=== PATIENT | female | born 1955 | race Caucasian/White ===

== ENCOUNTER 2025-10-04 10:44 | Outpatient (AMB) | payer OTHER, SELFPAY ==
[2025-10-04 11:15] VITALS: BMI 26.6
--- NOTE | 2025-10-04 11:15 | A.SPINEOV_ITS ---
Vital Signs 10/04/25 11:15 Height 5 ft 6 in Weight 165 lb BMI 26.6 Intake Visit Reasons: cervical stenosis Intake Note: Ms. Campbell is here today c/o neck,thoracic and low back pain with intermittent tingling of the arms and legs. MRI done at [facility]. [employer] Al[employer] Installer Required: No Allergies No Known Allergies Allergy (Verified 10/04/25 11:16) Physical Exam Vital Signs: BMI result Body Mass Index 26.6 Assessment & Plan Assessment & Plan (1) Scoliosis (and kyphoscoliosis), idiopathic: Code(s): M41.20 - Other idiopathic scoliosis, site unspecified Category: Medical (2) Cervical disc disorder: Code(s): M50.90 - Cervical disc disorder, unspecified, unspecified cervical region Category: Medical Plan Dear Dr Fisher, Thank you for referring Mrs Campbell to our office today. This is a 69-year-old female history of fibromyalgia, osteoporosis, polyneuropathy presents for evaluation of 2 separate issues. The 1st is a chronic neck pain which is in the posterior midline part of her neck radiates down to her shoulders. Occasionally what go down into her left deltoid. She has an MRI showing degenerative disc disease in the cervical spine and stenosis. Second issue is midline back pain and bilateral lower extremity pain and fatigue in her legs with walking that gets better when she sits. She has had physical therapy on her back, but no dedicated treatment for neck at this point. She takes oxycodone and gabapentin to try to deal with the discomfort. No cortisone injections, because of her osteoporosis. Denies any tingling numbness of the hands, weakness motor strength loss, dexterity loss or other myelopathic symptoms. She does have burning in her fingertips and the tips of her toes which has been diagnosed as a polyneuropathy by Dr. Mario in [place]. PMH: Neurofibromatosis 1, osteoporosis, uterine cancer which she is treating with hormonal therapy, anxiety, depression, ADHD, polyneuropathy. No previous surgeries. No cardiovascular disease, strokes, pulmonary liver kidney or coagu lopathy issues. No history of diabetes. Social hx: She does not smoke, rarely uses marijuana, no alcohol Medications: Gabapentin, duloxetine, alendronate, megestrol, lorazepam, olanzapine, Ritalin and oxycodone Allergies: None Physical exam: Awake alert oriented no acute distress, strength in bilateral upper and lower extremities is full, reflexes diffusely hyperreflexic, positive Suarez's sign, positive Babinski upgoing toe. Clonus in both ankles. Gait is slow but normal. Imaging review: Cervical MRI and lumbar MRI done at [facility] were reviewed by me and Dr. Johnson here in the office today. Cervical MRI shows degenerative disc disease at C4-5 with moderate stenosis, degenerative disc disease at C5-6 with left C6 foraminal narrowing, C6-7 degenerative disc disease with moderate stenosis. No cord signal change seen. Lumbar MRI shows normal alignment of the spine but there is overgrowth of the facets and ligamentum hypertrophy at L4-5 causing moderate to severe stenosis Impression: 69-year-old female presents to the office today for evaluation of 2 separate problems. The 1st issue is neck pain which can be explained to some degree with her degenerative disc disease at C4-5, C5-6 and C6-7. However, in light of the fact that she has fibromyalgia and osteoporosis, it would make her high risk for complications including hardware failure and ongoing neck pain if we were to do anterior cervical fusion to address these. There is the factor of her cervical stenosis at C4-5 and C6-7, in the setting of hyperreflexia often this will be an indication for surgery, but she has no subjective symptoms of stenosis including weakness of the hands, arm numbness etc.. She has no loss of fine motor movements. Therefore, we will treat this clinically with routine follow-up every 6 months. If she starts to develop symptoms she knows to call us and we can consider an operation at that point. With regard to the presentation of low back pain and bilateral lower extremity pain. She does have what looks like normal alignment of the spine and good disc quality but there is severe stenosis at L4-5 related to posterior ligamentous hypertrophy. We will send the patient for standing scoliosis series x-rays to evaluate her a little more closely, as she has been told in the past that she does have a history of a curved spine and on clinical observation she appears to have scoliosis when standing upright. If there is no signs of significant scoliotic curvature with standing, Dr. Johnson will offer her an L4-5 decompression. Thank you for allowing us to care for your patient. The total time spent with this visit with this patient was 65 minutes reviewing history, physical exam, lumbar and cervical imaging review, and implementation of treatment plan or further diagnostic testing Pete Johnson MD,PhD [facility] Orders: Orders XR scoliosis survey Today M41.20 - Other idiopathic scoliosis, site unspecified XR lumbar spine 4V min Today M41.20 - Other idiopathic scoliosis, site unspecified Coding Level of Care Code New Pt Level 5 (13561) Diagnoses Scoliosis (and kyphoscoliosis), idiopathic M41.20 Cervical disc disorder M50.90
== END 2025-10-04 13:06 | disposition home or self-care (01) ==
LOC: HO.HNS 10:45
PROVIDERS: PCP Family Medicine; Referring Provider Family Medicine; Visit Provider Physician Assistant
DX: M41.20 Other idiopathic scoliosis, site unspecified (principal); M50.90 Cervical disc disorder, unspecified, unspecified cervical region
CPT/HCPCS: 99205

== ENCOUNTER 2025-10-04 10:44 | Outpatient (REF) | payer OTHER, SELFPAY ==
--- OUTSIDE RECORDS SUMMARY | 2025-10-02 12:00 | XMS_ITS | Encounter Summary ---
Author Organization [facility] Address [address] [place] [address] Care Team Providers Care Research/Program Director Name Role Phone Lexi Fisher MD Primary Care Provider [phone] Diane Coker Unavailable Unavailable Reason for Visit * Reason Comments Anxiety Encounter Details Date Type Department Care Team (Late st Contact Info) Description 10/02/2025 12:00 PM EST Home Visit [facility] [address] [place] [address] Kaya Ferguson RN Anxiety about health Social History Tobacco Use Types Packs/Day Years Used Date Smoking Tobacco: Former Cigarettes Depression Answer Date Recorded Patient Health Questionnaire-9 Score 16 01/20/2023 Depression Answer Date Recorded Patient Health Questionnaire-2 Score 4 01/20/2023 Comments Unknown Sex and Gender Information Value Date Recorded Sex Assigned at Female 11/10/2022 1:55 PM EST Legal Sex Female 8:40 PM EDT Gender Identity Female 11/10/2022 1:55 PM EST Sexual Orientation Choose not to disclose 2022 8:57 AM EST documented as of this encounter Plan of Treatment Upcoming Encounters Date Type Department Care Team (Late st Contact Info) Description 10/07/2025 2:00 PM EST Office Visit [facility] [address] [place] [address] Lexi Fisher MD [address] [place] [address] documented as of this encounter Visit Diagnoses Diagnosis Anxiety about health documented in this encounter Additional Health Concerns Assessment Noted Time PHQ-9 Depression Total Score: 16 023 2:48 PM EDT documented as of this encounter Care Teams Research/Program Director Relationship Specialty Start Date End Date Lexi Fisher MD [address] [facility] [address] PCP - General Family Medicine 10/13/22 Diane Coker Health Navigator [facility] 03/09/23 documented as of this encounter
--- NOTE | ~2025-10-04 | XR_ITS ---
EXAM: CR Xr Scoliosis Survey TECHNIQUE: AP and lateral views of the cervical, thoracic, and lumbar spine. There was stitching of the AP views. INDICATION: Scoliosis PRIOR: None FINDINGS: Sagittal balance: Positive: The geometric center of the C7 vertebral body projects 2.9 anterior to the posterior margin of the superior endplate of S1. Coronal balance: Neutral. The geometric center of C7 projected 0.7 cm right of the center of S1. Curvature: Cervical: 6 degrees convex left. Thoracic: 11 degrees convex right with apex at T8. Lumbar: 7 degrees convex left. [place] Risser Stage: 5: Completely ossified iliac crest apophysis and closed physis. XR/XR scoliosis survey IMPRESSION: Mild S shaped scoliosis and positive sagittal balance Electronically signed by: Victor M Bell MD 10/04/2025 01:04 PM CAYDEN DUVALL
--- NOTE | ~2025-10-04 | XR_ITS ---
Examination: CR Xr Lumbar Spine 4v Min Technique: AP, lateral spot, and lateral: Flexion, neutral, and extension view x-rays of the lumbar spine. Prior: None INDICATION: M41.20 - Other idiopathic scoliosis, site unspecified FINDINGS: Mild degenerative changes are present left greater than right SI joints. There is a normal bowel gas pattern. There are 5 non-rib bearing lumbar segments. There is mild convex left curvature of the lumbar spine. T12-L1: Unremarkable L1-L2: There is minimal disc space narrowing and ossification of the disc annulus. L2-L3: There is subtle retrolisthesis and mild disc space narrowing with endplate osteophytes. L3-L4: Unremarkable L4-L5: There is 7 mm anterolisthesis on extension and 4 mm anterolisthesis in neutral position. There is mild disc space narrowing. There is mild facet sclerosis. L5-S1: There is grade 1 anterolisthesis without significant instability during flexion and extension. Disc spaces minimally narrowed. There is mild facet sclerosis. XR/XR lumbar spine 4V min IMPRESSION: L4-5 demonstrates mild grade 1 anterolisthesis with possible instability during flexion and extension. Electronically signed by: Victor M Bell MD 10/04/2025 01:10 PM EST
--- OUTSIDE RECORDS SUMMARY | 2025-10-04 17:55 | XMS_ITS | Clinical Summary ---
Author Organization [facility] Address [address] [place] [address] Phone Care Team Providers Care Loop Puller Name Role Phone Checo Mario MD Unavailable Marc Mario MD Unavailable [phone] Francois Salazar MD Unavailable [email or web address] Lexi Fisher MD Primary Care Provider Allergies Active Allergy Reactions Criticality Noted Date Comments Mold Extracts 10/20/2022 Medications methylphenidate HCl (RITALIN) 10 MG tablet Take 30-40 mg by mouth daily. 20mg sometimes 30mg Active cholecalciferol (VITAMIN D3) 1,000 unit tablet 1 tablet, alt with 2 tabs Orally Once a day Active polyethylene glycol (MIRALAX) 17 gram packet 2 (two) times a day. Active diclofenac sodium (VOLTAREN) 1 % Gel APPLY A SMALL AMOUNT TO KNEES 3 TIMES A DAY NEEDED 1 9 Active acetaminophen (TYLENOL) 500 MG tablet Take 500 mg by mouth every 6 (six) hours as needed for pain (specific location in comments). Active VENTOLIN HFA 90 mcg/actuation inhaler INHALE 1 PUFF BY MOUTH EVERY 4 HOURS NEEDED 2 Active ANTACID EXTRA-STRENGTH 300 mg (750 mg) Chew CHEW 1 TABLET 3 TIMES A DAY NEEDED FOR MODERATE PAIN 2 Active fluticasone propionate (FLONASE) 50 mcg/actuation nasal spray SPRAY 2 SPRAYS INTO EACH NOSTRIL EVERY DAY 2 Active ALAWAY 0.025 % (0.035 %) ophthalmic solution INSTILL 1 DROP INTO BOTH EYES TWICE A DAY. MAX OF 2 DOSES PER DAY SPACED 8-12 HOURS APART 2 Active megestroL (MEGACE) 40 MG tablet 1 tablet every morning. Active OLANZapine (ZYPREXA) 10 MG tablet 1 tablet every morning. Active oxyCODONE-aceta minophen (PERCOCET) 10-325 mg per tablet Take 1 tablet by mouth every 6 (six) hours as needed for pain (specific location in comments). Partial fill ok Active gabapentin (NEURONTIN) 100 MG capsule Take 2 capsules (200 mg total) by mouth 3 (three) times a day for 14 days. 84 capsule 4 Active LORazepam (ATIVAN) 0.5 MG tablet Take 1 tablet (0.5 mg total) by mouth 2 (two) times a day as needed for anxiety. 4 Active Active Problems Problem Noted Date Diagnosed Date Ataxia 04/11/2024 Assessment & Plan (04/13/2024 4:35 PM EDT): Unclear cause, though likely an element of chronicity. Multiple prior encounters have referenced difficulty with gait and falls, including her medical admission at [facility] in 2019. Certainly her chronic diplopia is contributing to her falls. Unclear how much worse her gait is today versus her baseline. Appreciate [facility] neurology input. Agree that with altered renal function she is at risk for gait and mental status changes from her high dose gabapentin. - gabapentin 1200mg held for 2 days, some improvement in functionality, resumed med at 200 mg TID - at 1200 and 2000. Monitor for adverse response - decrease dose of home oxycodone and lorazepam for now - MRI of the brain completed and resulted w/ no acute findings - PT/OT evaluation- still requiring moderate help w/ sitting up, contact w/ wheeled walker- likely home w/ VNA Abnormal biopsy result 04/11/2024 ADHD 04/11/2024 Back pain 04/11/2024 Cervical spondylosis 04/11/2024 Chronic pelvic pain in female 04/11/2024 Fibromyalgia 04/11/2024 Headache 04/11/2024 Constipation 04/11/2024 Assessment & Plan (04/13/2024 4:29 PM EDT): Pt. States nausea today 04/13 States no BM since - Miralax bid ordered -Senna changed from 1 tab prn to 2 tabs prn -Dulcolax pr x1 ordered - zofran 4mg for nausea Q 8hr. Prn available Bipolar disorder 04/11/2024 Overview (04/11/2024): has long standing therapist, Randi Rich Assessment & Plan (04/11/2024 9:04 PM EDT): Continue home olanzapine. Will reduce dose of home lorazepam while workup is ongoing. Depression 04/11/2024 Fracture of hand 04/11/2024 Generalized anxiety disorder 04/11/2024 GERD (gastroesophageal reflux disease) Hiatal hernia 04/11/2024 Malignant neoplasm of endometrium 04/11/2024 Overview (04/11/2024): followed by [facility] Extension Professor/onc On alf drug therapy 04/11/2024 Osteoarthritis 04/11/2024 Peripheral neuropathy 04/11/2024 Somatization disorder 04/11/2024 Disorientation 04/11/2024 Assessment & Plan (04/13/2024 4:32 PM EDT): Appears to have some mild disorientation which has been waxing and waning while in the ED. She is oriented x 3 on my exam, though at times does seem confused about her surroundings and circumstances. No focal neurologic deficits beyond ataxia. As above, will hold her gabapentin and give reduced doses of her home lorazepam and oxycodone. - Slight disorientation s/p 2mg Ativan administered for MRI test. Improved as afternoon wore on. If improved tomorrow, maybe dc home. 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 Really needs to get out a bit more. She made a new friend and is going to coffee hour. Talked about going to the [employer] and using the warm pool or doing chair yoga. She said she would look into this. Reactive airway disease 11/11/2022 Adult failure to thrive 08/30/2019 Assessment & Plan (08/31/2019 6:10 PM EST): Patient has a significant component of increased depression and anxiety which is contributing to her failure to thrive. She does absolutely have associated weakness and pain which is intermittent and I suspect is related to some neuropathic pain. We have involved physical therapy who reports that the patient is a further perspective to return home with outpatient services. Also involved palliative care who has given great insight and will continue to support the patient as an outpatient on discharge. I recommended to the patient that she continue to follow-up with her outpatient psychologist for continued support and adjustment of her medications on discharge. 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 Given her current symptoms, will obtain a brain MRI, as above. - MRI of brain done; no acute findings; Findings: Brain Parenchyma: No evidence of acute infarct, mass effect or hemorrhage. There are mild scattered foci of T2/FLAIR hyperintensity in the periventricular and subcortical white matter, likely a manifestation of mild chronic small vessel disease. Mild diffuse cerebral and cerebellar parenchymal volume loss. Ventricular System and Extra-Axial Spaces: The ventricles and cortical sulci are prominent, compensatory due to underlying volume loss. No evidence of midline shift or hydrocephalus. Extracranial Structures: Orbits appear normal. Paranasal sinuses and mastoid air cells are clear. Normal arterial flow voids in the skull base. Right parietal scalp and right preauricular sebaceous cysts. Assessment & Plan (08/31/2019 6:11 PM EST): She is followed by Dr. Salazar at [facility]. The emergency department discussed the case with teleneurology and they asked that she be transferred to a facility with neurology on staff, but the patient would rather stay here. The MRI of her brain showed no significant change in findings from January 2018 when she had her last MRI brain. There was no brainstem glioma resulting in no increased intracranial pressure. The patient has symptoms of peripheral neuropathy so an MRI of her total spine is still pending. The read on this is not back yet so given the late hour and the lack of radiology input at this time, will defer patient's discharge until tomorrow morning we have this information available to have sure that there is no acute surgical intervention needed. I suspect that with a paucity of symptoms this afternoon with my exam that the patient unlikely to have significant nerve root compression which would require surgical decompression on a urgent basis. Neuropathic pain 02/18/2019 Dupuytren's contracture of left hand 04/21/2018 Weakness Encounters Date Type Department Care Team Description 09/25/2025 5:51 PM EST - 09/25/2025 11:59 PM EST Hospital Encounter [address] [address] Lexi Fisher MD Discharge Disposition: Home or Self Care 09/06/2025 Procedure Pass [address] [address] 09/06/2025 Transcribe Orders Virtual Department [address] [place] [address] Lexi Fisher MD Bilateral leg weakness (Primary Dx) from Last 3 Months Family History Medical History Relation Comments No Known Problems Brother Bladder Cancer Father Lung cancer Mother No Known Problems Sister Neurofibromatosis Neg Hx Relation Status Comments Brother Alive Father Mother Sister Alive Social History Tobacco Use Types Packs/Day Years Used Date Smoking Tobacco: Former Cigarettes Q uit: 02/23/2000 Smokeless Tobacco: Never Tobacco Cessation:Counseling Given: Not Answered Alcohol Use Standard Drinks/Week Comments Not Currently 0 (1 standard drink = 0.6 oz pur e alcohol) Sober since November 2016 Education Answer Date Recorded Are you interested in more education? Not on kendrick e 03/06/2023 Are you concerned about learning? Not on file 03/06/2023 No 03/06/2023 No 03/06/2023 Food Answer Date Recorded Within the past 6 months we worried whether our food would run out before we got money to buy more. Never True 04/11/2024 Within the past 6 months the food we bought just didn't last and we didn't have enough money to get more. Never True Residential Stability Answer Date Recor ded What is your housing situation today? I have shanique sing 04/11/2024 How many times have you move d in the past 12 months? Zero (I did not move) 04/11/2024 Paying for Meds Answer Date Recorded Do you have trouble paying for medicines? No 04/11/2024 Paying Utility Bills Answer Date Record ed Do you have trouble paying your heating or elect ricity bill? No 04/11/2024 Transportation Answer Date Recorded Has the lack of transportati on kept you from medical appointments or from getting medications? No 04/11/2024 Digital Access Answer Date Recorded No 04/11/2024 Yes 04/11/2024 Do you have reliable internet access at home? Un able to assess 04/11/2024 Do you have a device (e.g., phone, tablet, computer) with a working camera? Yes 04/11/2024 Intimate Partner Violence Answer Date R ecorded Are you denied basic needs s uch as food, clothing, or medical care? No 04/11/2024 In the past 12 months have y ou been in a relationship with a person who hurts, threatens, or tries to control you? No 04/11/2024 Are you denied basic needs s uch as food, clothing, or medical care? No 04/11/2024 In the past 12 months have y ou been in a relationship with a person who hurts, threatens, or tries to control you? 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 Not on file Not on file Not on file Last Filed Vital Signs Vital Sign Reading Time Taken Comments Blood Pressure 138/85 04/14/2024 8:50 AM EDT Pulse 82 04/14/2024 8:50 AM EDT Temperature 36.8 C (98.2 F) 04/14/2024 8:50 AM EDT Respiratory Rate 16 04/14/2024 8:50 AM EDT Oxygen Saturation 97% 04/14/2024 8:50 AM EDT Inhaled Oxygen Concentration - - Weight 74.8 kg (165 lb) 09/17/2025 2:42 PM EST Height 167.6 cm (5' 6 ) 09/17/2025 2:42 PM EST Body Mass Index 26.63 09/17/2025 2:42 PM EST Plan of Treatment Health Maintenance Due Date Last Done Comments DEPRESSION SCREENING 1969 SMOKING Hx and SMOKELESS TOBACCO SCREENING 1970 HEPATITIS C SCREENING 1975 PNEUMOCOCCAL VACCINES (50+ years) (1 of 2 - PCV) 1976 MAMMOGRAM 1997 COLOGUARD 2002 FIT TEST 2002 FOBT 2002 SIGMOIDOSCOPY 2002 VIRTUAL COLONOSCOPY 2002 OSTEOPOROSIS SCREENING INITIAL (ONE-TIME) 2022 LIPID PANEL 08/28/2023 08/28/2018 INFLUENZA VACCINE (#1) 2025 2, 06/20/2021, 06/23/2020, Additional history exists Adult Td,Tdap Booster 06/14/2025 06/14/2015 COVID-19 VACCINE ( season) 2025 10/07/2022, 05/11/2022, 01/28/2021 SCREENING FOR DIABETES 04/14/2027 04/14/2024 COLONOSCOPY 02/25/2028 02/24/2018 COLORECTAL CANCER SCREENING 02/25/2028 RSV VACCINE (1 - 1-dose 75+ series) 2032 ZOSTER VACCINES Completed 01/12/2023, 06/20/2021 HEPATITIS A VACCINES Aged Out No long er eligible based on patient's age to complete this topic HIB VACCINES Aged Out No longer eligi ble based on patient's age to complete this topic MENINGOCOCCAL VACCINES (ACWY) Aged Out No longer eligible based on patient's age to complete this topic MENINGOCOCCAL VACCINES (B) Aged Out N o longer eligible based on patient's age to complete this topic Medical Devices Not on file Procedures Procedure Name Priority Date/Time Associated Diagnosis Comments MRI LUMBAR SPINE (NEURO) WITHOUT CONTRAST Routine 09/25/2025 7:00 PM EST Bilateral leg weakness LIPID PANEL Routine 08/28/2018 8:12 AM EST Routine medical exam ENDOSCOPY, COLON 02/24/2018 2:39 PM EDT from Last 3 Months or Most Recently Relevant to Health Maintenance Results * MRI LUMBAR SPINE (NEURO) WITHOUT CONTRAST (09/25/2025 7:00 PM EST) Anatomical Region Laterality Modality L-spine Magnetic Resonan ce 09/27/2025 2:31 PM EST Impressions 09/27/2025 2:38 PM EST Moderate multilevel lumbar spondylosis, notable for grade 1 anterolisthesis at L5-S1. There is moderate canal narrowing at L4-5, without specific evidence for nerve root impingement. Narrative 09/27/2025 2:38 PM EST MRI LUMBAR SPINE (NEURO) WITHOUT CONTRAST Referring clinician's provided indication for this examination in Epic: Outside Radiology Order; BILATERAL LEG WEAKNESS TECHNIQUE: MRI LUMBAR SPINE (NEURO) WITHOUT CONTRAST Multi-sequence, multi-planar MRI of the lumbar spine was performed without intravenous contrast. COMPARISON: MRI CERVICAL/THORACIC/LUMBAR SPINE WITHOUT CONTRAST FINDINGS: LUMBAR SPINE: Alignment and Vertebrae: 0.4 cm anterolisthesis of L5 on S1, without associated pars defects. No acute compression fracture. Marrow: No bone marrow replacing lesion. Discs and Endplates: Normal intervertebral disc heights and signal. Conus: Normal. Soft Tissues: Normal. No prevertebral edema. Other Findings: None. Findings by level: T12-L1: Negative L1-L2: Mild bilateral facet arthropathy, without significant canal or foraminal narrowing. L2-L3: Mild bilateral facet arthropathy, without significant canal or foraminal narrowing. L3-L4: Mild bilateral facet arthropathy. Mild diffuse disc bulge eccentric to the right foraminal region. No significant canal or foraminal narrowing. L4-L5: Moderate bilateral facet arthropathy with ligamentum flavum infolding. There is a small medially oriented right facet synovial cyst. Diffuse disc bulge. Moderate canal narrowing with crowding of the cauda equina nerve roots but without specific evidence for impingement. No high-grade foraminal narrowing. There is a right foraminal annular fissure. L5-S1: Severe bilateral facet arthropathy. Mild anterolisthesis with disc uncovering. Mild bilateral foraminal narrowing. Procedure Note Lisandro Cornell MD - 09/27/2025 MRI LUMBAR SPINE (NEURO) WITHOUT CONTRAST Referring clinician's provided indication for this examination in Epic:Outside Radiology Order; BILATERAL LEG WEAKNESS TECHNIQUE: MRI LUMBAR SPINE (NEURO) WITHOUT CONTRAST Multi-sequence, multi-planar MRI of the lumbar spine was performed withoutintravenous contrast. COMPARISON: MRI CERVICAL/THORACIC/LUMBAR SPINE WITHOUT [id number] FINDINGS: LUMBAR SPINE: Alignment and Vertebrae: 0.4 cm anterolisthesis of L5 on S1, withoutassociated pars defects. No acute compression fracture. Marrow: No bone marrow replacing lesion. Discs and Endplates: Normal intervertebral disc heights and signal. Conus: Normal. Soft Tissues: Normal. No prevertebral edema. Other Findings: None. Findings by level: T12-L1: Negative L1-L2: Mild bilateral facet arthropathy, without significant canal orforaminal narrowing. L2-L3: Mild bilateral facet arthropathy, without significant canal orforaminal narrowing. L3-L4: Mild bilateral facet arthropathy. Mild diffuse disc bulge eccentricto the right foraminal region. No significant canal or foraminalnarrowing. L4-L5: Moderate bilateral facet arthropathy with ligamentum flavuminfolding. There is a small medially oriented right facet synovial cyst.Diffuse disc bulge. Moderate canal narrowing with crowding of the caudaequina nerve roots but without specific evidence for impingement. Nohigh-grade foraminal narrowing. There is a right foraminal annularfissure. L5-S1: Severe bilateral facet arthropathy. Mild anterolisthesis with discuncovering. Mild bilateral foraminal narrowing. IMPRESSION: Moderate multilevel lumbar spondylosis, notable for grade 1anterolisthesis at L5-S1. There is moderate canal narrowing at L4-5,without specific evidence for nerve root impingement. us Lexi Fisher MD IMG MR XSPECIALTY Final Resu lt * (ABNORMAL) Lipid panel (08/28/2018 8:12 AM EST) HDL 81 mg/dL [facility] Comment: Interpretation <40 mg/dL: Low HDL cholesterol (major risk factor for CHD) Greater than or equal to 60 mg/dL: High HDL cholesterol ( negative risk factor for CHD) HDL - cholesterol is affected by a number of factors, e.g. smoking, excerise, hormones, sex and age. CHOLESTEROL 209 0 - 240 mg/dL [facility] TRIGLYCERIDES 77 30 - 160 mg/dL [facility] LDL 113 50 - 129 mg/dL [facility] Comment: LDL levels in terms of risk for coronary heart disease: <100 mg/dL: Optimal 100-129 mg/dL: Near or above optimal 130-159 mg/dL: Borderline high 160-189 mg/dL: High >190 mg/dL: Very High CARDIAC RISK RATIO 2.6(L) 3.3 - 4.4 [facility] Blood 08/28/2018 8:12 AM EST 08/28/2018 8:17 AM EST us Theresa Shah MD LAB BLOOD BKR ORDER JOSIAH Final Result [facility] [address] [place], [place] [id number] * ENDOSCOPY, COLON (02/24/2018 2:39 PM EDT) Narrative Transcriptions Carroll Chamberlain MD - 02/24/2018 2:39 PM EDT Patient Name: Ivy Campbell Attending MD:: CARROLL CHAMBERLAIN MD Procedure Date: 02/24/2018 2:39 PM Date of : 1955 Age: 62 Admit Type: Outpatient Gender: Female Room: [place] [address] Referring MD: THERESA SHAH MD Exam Type: Colonoscopy Indications: Change in bowel habits Medications: Sedation Required Anesthesia Staff Assistance Procedure: Informed consent was obtained from the patient after discussion of the indications, limitations,alternatives, benefits, and risks of the procedure. Risksspecifically discussed include but are not limited to medication reactions, missed lesions, bleeding, perforation, orthe need for emergent surgery. Throughout the procedure, the patient's blood pressure, pulse, end-tidal CO2, and oxygen saturations were monitored continuously. The Olympus adult variable colonoscope [id number] #2 was introduced through the anus and advanced to theterminal ileum. The colonoscopy was performed withoutdifficulty. The patient tolerated the procedure well. The qualityof the bowel preparation was good. Complications: No immediate complications. Estimated blood loss:Minimal. Findings: The perianal and digital rectal examinations werenormal. The terminal ileum appeared normal. Biopsies were taken with a cold forceps for histology. Few small diverticula, no significant diverticular disease. Biopsies were taken with a cold forceps for histology. Internal hemorrhoids were found during retroflexion.The hemorrhoids were mild. Impression: - The examined portion of the ileum was normal.Biopsied. - Internal hemorrhoids. Recommendation: - Discharge patient to home (ambulatory). - Await pathology results. - Return to GI office as previously scheduled. CARROLL CHAMBERLAIN MD 02/24/2018 3:18:13 PM This report has been signed electronically. Number of Addenda: 0 Note Initiated On: 02/24/2018 2:39 PM Procedure Code(s): --- Professional --- 30333, Colonoscopy, flexible; with biopsy, single or multiple --- Technical --- 33432, Colonoscopy, flexible; with biopsy, single or multiple Diagnosis Code(s): --- Professional --- K64.8, Other hemorrhoids R19.4, Change in bowel habit --- Technical --- K64.8, Other hemorrhoids R19.4, Change in bowel habit CPT copyright 2016 [employer]. All rights reserved. The codes documented in this report are preliminary and upon real estate attorney reviewmay be revised to meet current compliance requirements. [address] [place] [id number] Theresa Shah MD GI PROCEDURE ORDERA BLES Edited Result - Final from Last 3 Months or Most Recently Relevant to Health Maintenance Insurance MEDICARE PART A & B Member Subscriber Plan / Payer (Ef fective 2005-Present) Name:Ivy Campbell Member ID:[id number] Relation to Subscriber:Self Name:Ivy Campbell Subscriber ID:[id number] Payer ID:[id number] Group ID:Not on file Type:Medicare Address: [employer] [facility]. [address] [facility] [place] [address] [facility] MEDICARE REPLACEMENT MEDICARE PART A & B [employer] [facility] [employer] MEDICARE REPLACEMENT MEDICARE PART A & B [employer] [facility] [employer] MEDICARE REPLACEMENT MEDICARE PART A & B [facility] MEDICARE REPLACEMENT MEDICARE PART A & B [facility] RE[facility] SARAH HARPER [id number] MEDICARE PART A & B [facility] MEDICARE REPLACEMENT SARAH HARPER [facility] MEDICARE PART A & B Member Subscriber Plan / Payer (Ef fective 2005-Present) Name:Ivy Campbell Member ID:[id number] Relation to Subscriber:Self Name:Ivy Campbell Subscriber ID:[id number] Payer ID:[id number] Group ID:Not on file Type:Medicare Address: [employer] [address] MED[address] REPLACEMENT SARAH HARPER [facility] MEDICARE PART A & B [facility] MEDICARE REPLACEMENT MEDICARE PART A & B Member Subscriber Plan / Payer (Ef fective 2005-Present) Name:Ivy Campbell Member ID:[id number] Relation to Subscriber:Self Name:Ivy Campbell Subscriber ID:[id number] Payer ID:[id number] Group ID:Not on file Type:Medicare Address: [employer] [facility] [address] [place] [address] [facility] Advance Directives For more information, please contact: [phone] (9AM - 5PM [facility], Tuesday-Tuesday) * DNR/DNI (No CPR/No Intubation) (Latest Code Status on File) Date Activated Date Inactivated Comments 04/11/2024 8:59 PM Question Answer Comments Code Status Confirmed With: Patient * DNR/DNI (No CPR/No Intubation) Date Activated Date Inactivated Comments 08/30/2019 2:02 AM 08/31/2019 10:05 PM Question Answer Comments Code Status Confirmed With: Patient Care Teams Loop Puller Relationship Specialty Start Date End Date Lexi Fisher MD [address] [place] [address] PCP - General Family Medicine 04/12/24 Checo Mario MD [address] [place] [address], [address] [place] [address] Neurology 11/29/18 Marc Mario MD [address] [place] [address], [address] [place] [address] Psychiatry 11/29/18 Francois Salazar MD [email or web address] Primary Oncologist Neurology 01/03/19 Randi Rich Psy.D. [address] [place] [address] [address] [place] [address] Psychologist 11/30/18 Additional Source Comments The information contained in this document represents components of the legal health record. It is not the complete legal health record.[facility]
--- OUTSIDE RECORDS SUMMARY | 2025-10-04 17:55 | XMS_ITS | Encounter Summary ---
Author Organization [facility] Address [address] [place] [address] Phone Care Team Providers Care Acoustical Material Worker Name Role Phone Carlitos Castro MD Primary Care Provider [phone] Checo Mario MD Unavailable [phone] Marc Mario MD Unavailable [phone] Francois Salazar MD Unavailable [email or web address] Abigail Jason MD Primary Care Provider [phone] Lexi Fisher MD Primary Care Provider [phone] Encounter Details Date Type Department Care Team (Late st Contact Info) Description 08/30/2019 Procedure Pass [facility], [address] [address] Social History Tobacco Use Types Packs/Day Years Used Date Smoking Tobacco: Former Cigarettes Q uit: 02/23/2000 Smokeless Tobacco: Never Alcohol Use Standard Drinks/Week Comments Not Currently 0 (1 standard drink = 0.6 oz pur e alcohol) Sober since November 2016 Comments No Sex and Gender Information Value Date Recorded Sex Assigned at Female 03/02/2018 12:27 PM EDT Legal Sex Female 5:09 PM EST Gender Identity Female 03/02/2018 12:27 PM EDT Sexual Orientation Straight 03/02/2018 12 :27 PM EDT 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 file Not on file Not on file documented as of this encounter Last Filed Vital Signs Vital Sign Reading Time Taken Comments Blood Pressure - - Pulse - - Temperature - - Respiratory Rate - - Oxygen Saturation - - Inhaled Oxygen Concentration - - Weight 55.3 kg (122 lb) 08/30/2019 8:40 AM EST Height 166.4 cm (5' 5.51 ) 08/30/2019 8:40 AM ES T Body Mass Index 19.99 08/30/2019 8:40 AM EST documented in this encounter Plan of Treatment Not on file documented as of this encounter Visit Diagnoses Not on filedocumented in this encounter Care Teams Acoustical Material Worker Relationship Specialty Start Date End Date Carlitos Castro MD [address] [place] [address] PCP - General Internal Medicine 11/29/18 10/21/22 Abigail Jason MD [address] [place] [address] [email or web address] PCP - General Family Medicine 10/22/2204/11 Lexi Fisher MD [address] [place] [address] [email or web address] PCP - General Family Medicine 04/12/24 Checo Mario MD [address] [place] [address], [address] [place] [address] Neurology 11/29/18 Marc Mario MD [address] [place] [address], [address] [place] [address] Psychiatry 11/29/18 Francois Salazar MD [email or web address] Primary Oncologist Neurology 01/03/19 Randi Rich Psy.D. [address] [place] [address], [facility] [address] [place] [address] Psychologist 11/30/18 documented as of this encounter Additional Source Comments The information contained in this document represents components of the legal health record. It is not the complete legal health record.[facility]
--- OUTSIDE RECORDS SUMMARY | 2025-10-04 17:55 | XMS_ITS | Encounter Summary ---
Author Organization [facility] Address [address] [place] [address] Phone Care Team Providers Care Head Start Coordinator Name Role Phone Carlitos Castro MD Primary Care Provider [phone] Checo Mario MD Unavailable [phone] Marc Mario MD Unavailable [phone] Francois Salazar MD Unavailable SAROJ [email or web address] Abigail Jason MD Primary Care Provider [phone] Lexi Fisher MD Primary Care Provider [phone] Encounter Details Date Type Department Care Team (Late st Contact Info) Description 08/30/2019 Procedure Pass [facility], [address] [address] Social History Tobacco Use Types Packs/Day Years [...] on file 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 Not on file Not on file documented as of this encounter Plan of Treatment Not on file documented as of this encounter Visit Diagnoses Not on filedocumented in this encounter Care Teams Head Start Coordinator Relationship Specialty Start Date End Date Carlitos Castro MD [address] [place] [address] PCP - General Internal Medicine 11/29/18 10/21/22 Abigail Jason MD [address] [place] [address] [email or web address] PCP - General Family Medicine 10/22/2204/11 Lexi Fisher MD [address] [place] [address] [email or web address] PCP - General Family Medicine 04/12/24 Checo Mario MD [address] [place], [place] [address] [place] [address] Neurology 11/29/18 Marc Mario MD [address] [place] [address] Psychiatry 11/29/18 Francois Salazar MD [email or web address] Primary Oncologist Neurology 01/03/19 Randi Rich Psy.D. [address] [place] [address] Psychologist 11/30/18 documented as of this encounter Additional Source Comments The information contained in this document represents components of the legal health record. It is not the complete legal health record.[facility]
--- OUTSIDE RECORDS SUMMARY | 2025-10-04 17:56 | XMS_ITS | Encounter Summary ---
Author Organization [facility] Address [address] [place] [address] Phone Care Team Providers Care Net Development Manager Name Role Phone Carlitos Castro MD Primary Care Provider [phone] Checo Mario MD Unavailable Marc Mario MD Unavailable Francois Salazar MD Unavailable SAROJ [email or web address] Abigail Jason MD Primary Care Provider [phone] Lexi Fisher MD Primary Care Provider Encounter Details Date Type Department Care Team (Latest Contact Info) Description 08/13/2021 Transcribe Orders Virtual Department [address] [place] [address] Bianka Logan MD [address] [phone] Endometrial cancer (Primary Dx) Social History Tobacco Use Types Packs/Day Years [...] as of this encounter Visit Diagnoses Diagnosis Endometrial cancer- Primary Malignant neoplasm of corpus uteri, except isthmus documented in this encounter Care Teams Net Development Manager Relationship Specialty Start Date End Date Carlitos Castro MD [address] [place] [address] PCP - General Internal Medicine 11/29/18 10/21/22 Abigail Jason MD [address] [place] [address] [email or web address] PCP - General Family Medicine 10/22/2204/11 Lexi Fisher MD [address] [place] [address] [email or web address] PCP - General Family Medicine 04/12/24 Checo Mario MD [address] [place] [address], [address] [place] [address] Neurology 11/29/18 Marc Mario MD [address] [place] [address], [facility] [address] [place] [address] Psychiatry 11/29/18 Francois Salazar MD [email or web address] Primary Oncologist Neurology 01/03/19 Randi Rich Psy.D. [address] [place] [address] [address] [place] [address] Psychologist 11/30/18 documented as of this encounter Additional Source Comments The information contained in this document represents components of the legal health record. It is not the complete legal health record.[facility]
--- OUTSIDE RECORDS SUMMARY | 2025-10-04 17:56 | XMS_ITS | Encounter Summary ---
Author Organization [facility] Address [address] [place] [address] Phone Care Team Providers Care Power Ballast Machine Operator Name Role Phone Checo Mario MD Unavailable [phone] Marc Mario MD Unavailable [phone] Francois Salazar MD Unavailable [email or web address] Lexi Fisher MD Primary Care Provider [phone] Encounter Details Date Type Department Care Team (Late st Contact Info) Description 09/06/2025 Procedure Pass [facility], [address] [address] Social History Tobacco Use Types Packs/Day Years [...] on file 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 Not on file Not on file documented as of this encounter Plan of Treatment Not on file documented as of this encounter Visit Diagnoses Not on filedocumented in this encounter Care Teams Power Ballast Machine Operator Relationship Specialty Start Date End Date Lexi Fisher MD [address] [place] [address] PCP - General Family Medicine 04/12/24 Checo Mario MD [address] [place] [address], [address] [place] [address] [email or web address] Neurology 11/29/18 Marc Mario MD [address] [place] [address] [address] [place] [address] Psychiatry 11/29/18 Francois Salazar MD [email or web address] Primary Oncologist Neurology 01/03/19 Randi Rich Psy.D. [address] [place] [address] [address] [place] [address] Psychologist 11/30/18 documented as of this encounter Additional Source Comments The information contained in this document represents components of the legal health record. It is not the complete legal health record.[facility]
--- OUTSIDE RECORDS SUMMARY | 2025-10-04 17:56 | XMS_ITS | Encounter Summary ---
Author Organization [facility] Address [address] [facility] [address] [place] [address] Phone Care Team Providers Care Paper Baler Name Role Phone Theresa Shah MD Primary Care Provi [email or web address] Carlitos Castro MD Primary Care Provider [phone] Checo Mario MD Unavailable Marc Mario MD Unavailable [phone] Francois Salazar MD Unavailable [email or web address] [email or web address] Abigail Jason MD Primary Care Provider [phone] Lexi Fisher MD Primary Care Provider Encounter Details Date Type Department Care Team (Late st Contact Info) Description 02/24/2018 Procedure Pass [facility] Admitting Dept Virtual Department [address] [place] [address] Social History Tobacco Use Types Packs/Day Years Used Date Smoking Tobacco: Former Cigarettes Q uit: 02/23/2000 Smokeless Tobacco: Never Alcohol Use Standard Drinks/Week Comments No 0 (1 standard drink = 0.6 oz pur e alcohol) sober over a year Comments Unknown Sex and Gender Information Value Date Recorded Sex Assigned at Female 03/02/2018 12:27 PM EDT Legal Sex Female 5:09 PM EST Gender Identity Female 03/02/2018 12:27 PM EDT Sexual Orientation Straight 03/02/2018 12 :27 PM EDT documented as of this encounter Plan of Treatment Not on file documented as of this encounter Visit Diagnoses Not on filedocumented in this encounter Care Teams Paper Baler Relationship Specialty Start Date End Date Theresa Shah MD [email or web address] PCP - General Internal Medicine 08/22/1711/28/18 Carlitos Castro MD [address] [place] [address] PCP - General Internal Medicine 11/29/18 10/21/22 Abigail Jason MD [address] [place] [address] [email or web address] PCP - General Family Medicine 10/22/2204/11 Lexi Fisher MD [address] [place] [address] [email or web address] PCP - General Family Medicine 04/12/24 Checo Mario MD [address] [place] [address] [address] [place] [address] Neurology 11/29/18 Marc Mario MD [address] [place] [address], [facility] [address] [place] [address] Psychiatry 11/29/18 Francois Salazar MD [email or web address] Primary Oncologist Neurology 01/03/19 Randi Rich Psy.D. [address] [place] [address] [address] [place] [address] Psychologist 11/30/18 documented as of this encounter Additional Source Comments The information contained in this document represents components of the legal health record. It is not the complete legal health record.[facility]
--- OUTSIDE RECORDS SUMMARY | 2025-10-04 17:56 | XMS_ITS | Encounter Summary ---
Author Organization [facility] Address [address] [place] [address] Phone Care Team Providers Care Senior Db2 Systems Programmer Name Role Phone Theresa Shah MD Primary Care Provi [email or web address] Carlitos Castro MD Primary Care Provider [phone] Checo Mario MD Unavailable Marc Mario MD Unavailable [phone] Francois Salazar MD Unavailable SAROJ [email or web address] Abigail Jason MD Primary Care Provider [phone] Lexi Fisher MD Primary Care Provider [phone] Encounter Details Date Type Department Care Team (Latest Contact Info) Description 05/05/2018 Transcribe Orders [facility] Phleb Main [address] [place] [id number] Checo Mario MD [address] [place] [address], [address] [place], [place] [phone] [email or web address] Neuropathy (Primary Dx) Social History Tobacco Use Types Packs/Day Years Used Date Smoking Tobacco: Former Cigarettes Q uit: 02/23/2000 Smokeless Tobacco: Never Alcohol Use Standard Drinks/Week Comments No 0 (1 standard drink = 0.6 oz pur e alcohol) sober over a year Comments No Sex and Gender Information Value Date Recorded Sex Assigned at Female 03/02/2018 12:27 PM EDT Legal Sex Female 5:09 PM EST Gender Identity Female 03/02/2018 12:27 PM EDT Sexual Orientation Straight 03/02/2018 12 :27 PM EDT documented as of this encounter Plan of Treatment Not on file documented as of this encounter Results * Serum protein electrophoresis W/O Immunoglobulins and Immunofixation (05/05/2018 11:04 AM EDT) TOTAL PROTEIN 6.8 6.3 - 7.9 g/dL [facility] DPT OF LAB MED AND PAT+ ALBUMIN 3.6 3.4 - 4.7 g/dL [facility] DPT OF LAB MED AND PAT+ ALPHA-1 GLOBULIN 0.3 0.1 - 0.3 g/dL [facility] DPT OF LAB MED AND PAT+ ALPHA-2 GLOBULIN 1.0 0.6 - 1.0 g/dL [facility] DPT OF LAB MED AND PAT+ BETA-GLOBULIN 0.8 0.7 - 1.2 g/dL [facility] DPT OF LAB MED AND PAT+ GAMMA-GLOBULIN 1.1 0.6 - 1.6 g/dL [facility] DPT OF LAB MED AND PAT+ A/G RATIO 1.13 [facility] MED AND PAT+ M SPIKE Test component not applicable or not reported. not reported [facility] DPT OF LAB MED AND PAT+ M SPIKE Test component not applicable or not reported. not reported [facility] DPT OF LAB MED AND PAT+ IMPRESSION SEE NOTE [facility]PT OF LAB MED AND PAT+ Comment: (NOTE) No apparent monoclonal protein on serum electrophoresis. Blood 05/05/2018 11:0 4 AM EDT 05/05/2018 11:06 AM EDT us Checo Mario MD LAB BLOOD BKR ORDERABLES Fin al Result [facility] DPT OF LAB MED AND PAT+ [address] [place] [address] * Antinuclear antibody (GALINDO) (05/05/2018 11:03 AM EDT) GALINDO SCREEN ON HEP 2 Negative Negative [facility] Blood 05/05/2018 11:0 3 AM EDT 05/05/2018 11:06 AM EDT us Checo Mario MD LAB BLOOD BKR ORDERABLES Fin al Result [facility] [address] [place] [address] documented in this encounter Visit Diagnoses Diagnosis Neuropathy- Primary Mononeuritis of unspecified site documented in this encounter Care Teams Senior Db2 Systems Programmer Relationship Specialty Start Date End Date Theresa Shah MD [email or web address] PCP - General Internal Medicine 08/22/1711/28/18 Carlitos Castro MD [address] [place] [address] PCP - General Internal Medicine 11/29/18 10/21/22 Abigail Jason MD [address] [place] [address] [email or web address] PCP - General Family Medicine 10/22/2204/11 Lexi Fisher MD [address] [place] [address] [email or web address] PCP - General Family Medicine 04/12/24 Checo Mario MD [address] [place] [address], [address] [place] [address] Neurology 11/29/18 Marc Mario MD [address] [place] [address], [address] [place] [address] [email or web address] Psychiatry 11/29/18 Francois Salazar MD [email or web address] Primary Oncologist Neurology 01/03/19 Randi Rich Psy.D. [address] [place] [address] Psychologist 11/30/18 documented as of this encounter Additional Source Comments The information contained in this document represents components of the legal health record. It is not the complete legal health record.[facility]
--- OUTSIDE RECORDS SUMMARY | 2025-10-04 17:56 | XMS_ITS | Encounter Summary ---
Author Organization [facility] Address [address] [place] [address] Phone Care Team Providers Care Collator Name Role Phone Theresa Shah MD Primary Care Provi [email or web address] Carlitos Castro MD Primary Care Provider [phone] Checo Mario MD Unavailable Marc Mario MD Unavailable Francois Salazar MD Unavailable [email or web address] [email or web address] Abigail Jason MD Primary Care Provider [phone] Lexi Fisher MD Primary Care Provider [phone] Encounter Details Date Type Department Care Team (Late st Contact Info) Description 05/05/2018 Transcribe Orders [facility] Phleb [address] [place] [address] Theresa Shah MD [address] [place] [address] [id number] [email or web address] Fatigue, unspecified type (Primary Dx) Social History Tobacco Use Types [...] documented as of this encounter Results * Babesia species PCR (05/05/2018 11:04 AM EDT) B.Microti PCR Negative Negative [facility] DPT OF LAB MED AND PAT+ B.Duncani PCR Negative Negative [facility] DPT OF LAB MED AND PAT+ B.Divergens/MO-1 PCR Negative Negative [facility] DPT OF LAB MED AND PAT+ Comment: (NOTE) ADDITIONAL INFORMATION This test was developed and its performance characteristics determined by [facility] in a manner consistent with CLIA requirements. This test has not been cleared or approved by the U.S. Food and Drug Administration. Blood 05/05/2018 11:0 4 AM EDT 05/05/2018 11:06 AM EDT Theresa Shah MD LAB BLOOD ORDERABLE S Final Result [facility] DPT OF LAB MED AND PAT+ [address] [place] [address] * Ehrlichia antibody panel (05/05/2018 11:04 AM EDT) ANAPLASMA PHAGOCYTOPHILUM AB I <1:64 <1:64 [facility] LAB MED/PATH SU[address]IOR [place] Comment: (NOTE) ADDITIONAL INFORMATION This test was developed using an analyte specific reagent. Its performance characteristics were determined by [facility] in a manner consistent with CLIA requirements. This test has not been cleared or approved by the U.S. Food and Drug Administration. EHRLICHIA CHAFF (HME) AB, IGG <1:64 <1:64 [facility] LAB MED/PATH SUPERIOR Comment: (NOTE) ADDITIONAL INFORMATION This test was developed using an analyte specific reagent. Its performance characteristics were determined by [facility] in a manner consistent with CLIA requirements. This test has not been cleared or approved by the U.S. Food and Drug Administration. Blood 05/05/2018 11:0 4 AM EDT 05/05/2018 11:06 AM EDT Theresa Shah MD LAB BLOOD ORDERABLE S Final Result [facility] LAB MED/PATH [address] [place] [address] * Malaria/babesia exam (05/05/2018 11:04 AM EDT) Specimen Source/ Description WHOLE BLOOD [facility] Special Requests None [facility] MALARIA SMEAR No Malaria or Babesia observed [facility] Report Status 05/06/2018 FINAL [facility] Other (Whole blood) 05/05/2018 11:04 AM EDT 05/05/2018 11:07 AM EDT Theresa Shah MD LAB BLOOD BKR ORDER JOSIAH Final Result Performing Organization Address City/[facility]/ZIP Co de Phone Number [address] [address] * Babesia serology (05/05/2018 11:04 AM EDT) BABESIA MICROTI IGG <1:64 [facility] BABESIA MICROTI IGM <1:20 [facility] Interpretation (B. microti) SEE NOTE [facility] Comment: (NOTE) ANTIBODY NOT DETECTED REFERENCE RANGES: IgG <1:64 IgM <1:20 Elevated antibody levels to B. microti indicate exposure to the organism. Human babesiosis infection is transmitted by the bite of an infected Ixodes tick or less frequently from transfusion with blood from an infected donor. Definitive diagnosis is made by identifying intraerythrocytic organisms in peripheral blood. In patients with low parasitemia, antibody detection by IFA is recommended. IgG levels greater than or equal to 1:1024 can be detected in acute phase patients with parasites in blood smears. The IFA assay can be used as a seroepidemiologic tool to study the frequency and distribution of B. microti in endemic areas especially in persons with mixed infections also involving Borrelia burgdorferi. This test was developed and its analytical performance characteristics have been determined by [facility]. It has not been cleared or approved by FDA. This assay has been validated pursuant to the CLIA regulations and is used for clinical purposes. Test Performed by: [facility] [address] [place] [address] Blood (Blood) 05/05/2018 11: 04 AM EDT 05/05/2018 11:06 AM EDT Theresa Shah MD MICROBIOLOGY - GENE RAL ORDERABLES Final Result Performing Organization Address City/[facility] Co de Phone Number [facility] * Ehrlichia/anaplasma PCR (05/05/2018 11:04 AM EDT) ANAPLASMA PHAGOCYTO Negative Negative [facility] DPT OF LAB MED AND PAT+ EHRLICHIA CHAFFEENS Negative Negative [facility] DPT OF LAB MED AND PAT+ EHRL EWINGII/CANIS Negative Negative [facility] DPT [facility] LAB MED AND PAT+ EHRL MURIS-LIKE Negative Negative [facility] DPT OF LAB MED AND PAT+ Comment: (NOTE) ADDITIONAL INFORMATION This test was developed and its performance characteristics determined by [facility] in a manner consistent with CLIA requirements. This test has not been cleared or approved by the U.S. Food and Drug Administration. Blood 05/05/2018 11:0 4 AM EDT 05/05/2018 11:06 AM EDT Theresa Shah MD LAB BLOOD ORDERABLE S Final Result [facility] DPT OF LAB MED AND PAT+ [address] [place] [address] * Lyme screen with reflex to Western blot, blood (05/05/2018 11:03 AM EDT) [facility] Lyme AB IgG Negative Negative [facility] Lyme AB IgM Negative Negative [facility] Blood 05/05/2018 11:0 3 AM EDT 05/05/2018 11:06 AM EDT Theresa Shah MD LAB BLOOD BKR ORDER JOSIAH Final Result Performing Organization Address City/[facility]/ZIP Co de Phone Number [address] [address] * Vitamin B12 (05/05/2018 11:03 AM EDT) [facility] VITAMIN B12 682 232 - 1,245 pg/mL [facility] Blood 05/05/2018 11:0 3 AM EDT 05/05/2018 11:06 AM EDT Theresa Shah MD LAB BLOOD BKR ORDER JOSIAH Final Result Performing Organization Address [facility] Co de Phone Number [address] [address] * (ABNORMAL) CBC and differential (05/05/2018 11:03 AM EDT) [facility] WBC 4.44 3.40 - 11.20 K/uL [facility] RBC 4.44 3.80 - 4.80 M/uL [facility] HGB 14.0 12.0 - 15.0 g/dL [facility] HCT 41.3 36.0 - 46.0 % [facility] PLT 285 130 - 400 K/uL [facility] MCV 93.0 79.0 - 98.0 fL [facility] MCH 31.5 27.0 - 34.8 pg [facility] MCHC 33.9 31.5 - 36.0 g/dL [facility] RDW 12.6 10.8 - 14.6 % [facility] MPV 9.8 9.4 - 12.4 fl [facility] NRBC 0.00 /100 WBCs [facility] ABSOLUTE NRBC 0.00 K/uL [facility] DIFF METHOD Auto [facility] NEUTS 74.8 45.30 - 77.70 % [facility] LYMPHS 13.1 12.30 - 39.70 % [facility] MONOS 8.3 4.10 - 12.80 % [facility] EOS 2.7 0 - 7.2 % [facility] BASOS 0.9 0 - 2.80 % [facility] Granulocytes, immature (%) 0.2 0.0 - 0.9 % [facility] ABSOLUTE NEUTS 3.32 1.40 - 7.70 K/uL [facility] ABSOLUTE LYMPHS 0.58(L) 0.60 - 3.20 K/uL [facility] ABSOLUTE MONOS 0.37 0.11 - 0.59 K/uL [facility] ABSOLUTE EOS 0.12 0.01 - 0.50 K/uL [facility] ABSOLUTE BASOS 0.04 0.00 - 0.08 K/uL [facility] Granulocytes, immature 0.01 0.00 - 0.05 K/uL [facility] Blood 05/05/2018 11:0 3 AM EDT 05/05/2018 11:06 AM EDT us Theresa Shah MD LAB BLOOD BKR ORDER JOSIAH Final Result Performing Organization Address City/State/[facility] Co de Phone Number [facility] [address] [place] [address] * TSH with reflex (05/05/2018 11:03 AM EDT) TSH 0.62 0.27 - 4.20 uIU/mL [facility] Blood 05/05/2018 11:0 3 AM EDT 05/05/2018 11:06 AM EDT us Theresa Shah MD LAB BLOOD BKR ORDER JOSIAH Final Result [address] [address] * (ABNORMAL) Comprehensive metabolic panel (05/05/2018 11:03 AM EDT) SODIUM 141 133 - 146 mmol/L [facility] POTASSIUM 4.2 3.3 - 5.1 mmol/L [facility] CHLORIDE 100 96 - 108 mmol/L [facility] CO2 26 21 - 35 mmol/L [facility] BUN 22(H) 6 - 19 mg/dL [facility] CREATININE 0.80 0.5 - 1.5 mg/dL [facility] GLUCOSE 81 70 - 99 mg/dL [facility] ALBUMIN 4.2 3.9 - 4.8 g/dL [facility] TOTAL PROTEIN 6.8 6.5 - 8.0 g/dL [facility] CALCIUM 9.4 8.4 - 10.3 mg/dL [facility] ALKALINE PHOSPHATASE 66 39 - 117 U/L [facility] TOTAL BILIRUBIN 0.6 0.0 - 1.2 mg/dL [facility] AST 15 0 - 37 U/L [facility] ALT 7 0 - 40 U/L [facility] GLOBULIN 2.6 1 - 4.8 g/dL [facility] EGFR 80 >59 mL/min/1.7 3m2 [facility] Comment:If patient is black, multiply result by 1.159. Estimated glomerular filtration rate calculated using the CKD-EPI equation. ANION GAP 19 10 - 20 mmol/L [facility] Blood 05/05/2018 11:0 3 AM EDT 05/05/2018 11:06 AM EDT us Theresa Shah MD LAB BLOOD BKR ORDER JOSIAH Final Result Performing Organization Address City/[facility]/ZIP Co de Phone Number [address] [address] documented in this encounter Visit Diagnoses Diagnosis Fatigue, unspecified type- Primary documented in this encounter Care Teams Collator Relationship Specialty Start Date End Date Theresa Shah MD [email or web address] PCP - General Internal Medicine 08/22/1711/28/18 Carlitos Castro MD [address] [place] [address] PCP - General Internal Medicine 11/29/18 10/21/22 Abigail Jason MD [address] [place] [address] [email or web address] PCP - General Family Medicine 10/22/2204/11 Lexi Fisher MD [address] [place] [address] [email or web address] PCP - General Family Medicine 04/12/24 Checo Mario MD [address] [place] [address], [address] [place] [address] Neurology 11/29/18 Marc Mario MD [address] [place] [address] Psychiatry 11/29/18 Francois Salazar MD [email or web address] Primary Oncologist Neurology 01/03/19 Randi Rich Psy.D. [address] [place] [address] [id number] Psychologist 11/30/18 documented as of this encounter Additional Source Comments The information contained in this document represents components of the legal health record. It is not the complete legal health record.[facility]
--- OUTSIDE RECORDS SUMMARY | 2025-10-04 17:56 | XMS_ITS | Encounter Summary ---
Author Organization [facility] Address [address] [facility] [address] [place] [address] Phone Care Team Providers Care Warehouse Trainer Name Role Phone Checo Mario MD Unavailable Marc Mario MD Unavailable [phone] Francois Salazar MD Unavailable [email or web address] [email or web address] Abigail Jason MD Primary Care Provider Lexi Fisher MD Primary Care Provider [phone] Encounter Details Date Type Department Care Team (Latest Contact Info) Description 03/15/2023 Transcribe Orders [facility] Phleb [address] 2[address] Floor [place], [place] [id number] Efrain Martinez MD [address] [place] [address], [address] [place] [address] [email or web address] Double vision (Primary Dx) Social History Tobacco Use Types [...] on file 03/06/2023 No 03/06/2023 No 03/06/2023 Digital Access Answer Date Recorded No 03/15/2023 No 03/15/2023 Reliable internet access at home? Not on file 03/15/2023 Device with a working camera? 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 in a manner consistent with CLIA requirements. This test has not been cleared or approved by the U.S. Food and Drug Administration. Blood 03/15/2023 11:1 5 AM EDT 03/15/2023 11:22 AM EDT Efrain Martinez MD LAB BLOOD ORDERABLES Final Res ult [facility] DPT OF LAB MED AND PAT+ [address] [place] [address] * TSH with reflex (03/15/2023 11:15 AM EDT) TSH 1.48 0.27 - 4.20 uIU/mL [facility] Blood 03/15/2023 11:1 5 AM EDT 03/15/2023 11:18 AM EDT Efrain Martinez MD LAB BLOOD BKR ORDERABLES Final Result Performing Organization Address City/[facility]/ZIP Co de Phone Number [facility] [address] [place] [address] documented in this encounter Visit Diagnoses Diagnosis Double vision- Primary Diplopia documented in this encounter Care Teams Warehouse Trainer Relationship Specialty Start Date End Date Abigail Jason MD [address] [place] [address] [email or web address] PCP - General Family Medicine 10/22/2204/11 Lexi Fisher MD [address] [place] [address] [email or web address] PCP - General Family Medicine 04/12/24 Checo Mario MD [address] [place] [address], [address] [place] [address] Neurology 11/29/18 Marc Mario MD [address] [place] [address], [facility] [address] [place] [address] Psychiatry 11/29/18 Francois Salazar MD [email or web address] Primary Oncologist Neurology 01/03/19 Randi Rich Psy.D. [address] [place] [address], [address] [place] [address] Psychologist 11/30/18 documented as of this encounter Additional Source Comments The information contained in this document represents components of the legal health record. It is not the complete legal health record.[facility]
--- OUTSIDE RECORDS SUMMARY | 2025-10-04 17:56 | XMS_ITS | Encounter Summary ---
Author Organization [facility] Address [address] [address] [place] [address] Phone Care Team Providers Care Human Resources Specialist Name Role Phone Checo Mario MD Unavailable [phone] Marc Mario MD Unavailable [phone] Francois Salazar MD Unavailable [email or web address] Lexi Fisher MD Primary Care Provider + [phone] Encounter Details Date Type Department Care Team (Late st Contact Info) Description 05/14/2025 Procedure Pass [facility], [address] [address] Social History Tobacco Use Types Packs/Day Years [...] on file Not 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 Not on file Not on file documented as of this encounter Plan of Treatment Not on file documented as of this encounter Visit Diagnoses Not on filedocumented in this encounter Care Teams Human Resources Specialist Relationship Specialty Start Date End Date Lexi Fisher MD [address] [place] [address] PCP - General Family Medicine 04/12/24 Checo Mario MD [address] [place] [address], [address] [place] [address] [email or web address] Neurology 11/29/18 Marc Mario MD [address] [place] [address] [address] [place] [address] Psychiatry 11/29/18 Francois Salazar MD [email or web address] Primary Oncologist Neurology 01/03/19 Randi Rich Psy.D. [address] [place] [address] [address] [place] [address] Psychologist 11/30/18 documented as of this encounter Additional Source Comments The information contained in this document represents components of the legal health record. It is not the complete legal health record.[facility]
--- OUTSIDE RECORDS SUMMARY | 2025-10-04 17:56 | XMS_ITS | Encounter Summary ---
Author Organization [facility] Address [address] [place] [address] Phone Care Team Providers Care Sap Trainer Name Role Phone Checo Mario MD Unavailable [phone] Marc Mario MD Unavailable [phone] Francois Salazar MD Unavailable [email or web address] [email or web address] Abigail Jason MD Primary Care Provider [phone] Lexi Fisher MD Primary Care Provider [phone] Reason for Referral * MRI/CAT Scan - Closed Specialty Diagnoses / Procedures Referred By Contac t Referred To Contact Radiology Diagnoses Neurofibromatosis, 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 Apparent focal outpouching arising from the distal left internal carotid artery, not fully characterized, for which a tiny aneurysm is a differential consideration. Consider CTA or MRA head. This report has been forwarded to an automated communication system which will electronically notify appropriate providers of potentially important findings. Narrative 06/21/2023 7:32 AM EDT MRI BRAIN WITH AND WITHOUT CONTRAST TECHNIQUE: MRI BRAIN WITH AND WITHOUT CONTRAST Multi-sequence, multi-planar MRI of the brain was performed before and after intravenous contrast. COMPARISON: Brain MRI 08/30/2019. FINDINGS: Brain Parenchyma: There is minimal scattered T2/FLAIR hyperintensity in the periventricular and white matter which is nonspecific and can be seen in the setting of chronic small vessel disease. No evidence of acute infarct, mass lesion, or hemorrhage. Ventricular System and Extra-Axial Spaces: Normal. No evidence of midline shift or hydrocephalus. Extracranial Structures: Arterial flow voids in the skull base are present. 11 mm likely pilar cyst along the right parietal scalp on 6:22. Other: Apparent focal outpouching arising from the distal left internal carotid artery on 9:116. This examination is not tailored for precise optic nerve assessment, though no evidence of mass along the optic nerves or tracts is present. Procedure Note Rober Bedoya MD - 06/21/2023 MRI BRAIN WITH AND WITHOUT CONTRAST TECHNIQUE: MRI BRAIN WITH AND WITHOUT CONTRAST Multi-sequence, multi-planar MRI of the brain was performed before andafter intravenous contrast. COMPARISON: Brain MRI 08/30/2019. FINDINGS: Brain Parenchyma: There is minimal scattered T2/FLAIR hyperintensity inthe periventricular and white matter which is nonspecific and can be seenin the setting of chronic small vessel disease. No evidence of acuteinfarct, mass lesion, or hemorrhage. Ventricular System and Extra-Axial Spaces: Normal. No evidence of midlineshift or hydrocephalus. Extracranial Structures: Arterial flow voids in the skull base arepresent. 11 mm likely pilar cyst along the right parietal scalp on 6:22. Other: Apparent focal outpouching arising from the distal left internalcarotid artery on 9:116. This examination is not tailored for precise optic nerve assessment,though no evidence of mass along the optic nerves or tracts is present. IMPRESSION: No evidence of optic glioma by routine brain MRI technique. Apparent focal outpouching arising from the distal left internal carotidartery, not fully characterized, for which a tiny aneurysm is adifferential consideration. Consider CTA or MRA head. This report has been forwarded to an automated communication system whichwill electronically notify appropriate providers of potentially importantfindings. 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 documented in this encounter Care Teams Sap Trainer Relationship Specialty Start Date End Date Abigail Jason MD [address] [place] [address] [email or web address] PCP - General Family Medicine 10/22/2204/11 Lexi Fisher MD [address] [place] [address] PCP - General Family Medicine 04/12/24 Checo Mario MD [address] [place] [address], [address] [place] [address] Neurology 11/29/18 Marc Mario MD [address] [place] [address], [facility] [address] [place] [address] Psychiatry 11/29/18 Francois Salazar MD [email or web address] Primary Oncologist Neurology 01/03/19 Randi Rich Psy.D. [address] [place] [address], [facility] [address] [place], [place] [id number] Psychologist 11/30/18 documented as of this encounter Additional Source Comments The information contained in this document represents components of the legal health record. It is not the complete legal health record.[facility]
--- OUTSIDE RECORDS SUMMARY | 2025-10-04 17:56 | XMS_ITS | Encounter Summary ---
Author Organization [facility] Address [address] [place] [address] Phone Care Team Providers Care Rheostat Assembler Name Role Phone Checo Mario MD Unavailable Marc Mario MD Unavailable [phone] Francois Salazar MD Unavailable SAROJ 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 Narrative 04/20/2023 11:38 PM EDT XR CERVICAL SPINE 4-5 VIEWS COMPARISON: MRI CERVICAL/THORACIC/LUMBAR SPINE WITHOUT CONTRAST ; CT SPINE CERVICAL WO FINDINGS: ALIGNMENT: Straightening of the cervical lordosis. 4 mm C3-4 anterolisthesis. Open-mouth view demonstrates normal alignment of the C1-C2 lateral masses. VERTEBRAE: Bones demineralized. Vertebral body heights preserved. DISCS: Disc height loss with endplate sclerosis and marginal osteophytes at C4- C7. FACETS: Uncovertebral arthropathy at all levels. Oblique neuroforaminal views demonstrate moderate osseous neuroforaminal stenosis at C4-5, C5-C6, and C6-7. PARASPINAL SOFT TISSUES: Within normal limits. Procedure Note Neyda Christianson MD - 04/20/2023 XR CERVICAL SPINE 4-5 VIEWS COMPARISON: MRI CERVICAL/THORACIC/LUMBAR SPINE WITHOUT [id number]; CT SPINE CERVICAL WO FINDINGS: ALIGNMENT: Straightening of the cervical lordosis. 4 mm C3-4anterolisthesis. Open-mouth view demonstrates normal alignment of theC1-C2 lateral masses. VERTEBRAE: Bones demineralized. Vertebral body heights preserved. DISCS: Disc height loss with endplate sclerosis and marginal osteophytesat C4- C7. FACETS: Uncovertebral arthropathy at all levels. Oblique neuroforaminalviews demonstrate moderate osseous neuroforaminal stenosis at C4-5, C5-C6,and C6-7. PARASPINAL SOFT TISSUES: Within normal limits. IMPRESSION: Moderate multilevel cervical spine degenerative change, similar toslightly progressed from 2016. us Lexi Fisher MD IMG XR SPINE Final Result * XR LUMBOSACRAL SPINE 4 OR MORE VIEWS (04/18/2023 1:08 PM EDT) Anatomical Region Laterality Modality L-spine Computed Radiogr aphy 04/20/2023 11:3 5 PM EDT Impressions 04/20/2023 11:36 PM EDT Moderate lower lumbar spine degenerative change most pronounced at L5-S1, similar to prior CT. Narrative 04/20/2023 11:36 PM EDT XR LUMBOSACRAL SPINE 4 OR MORE VIEWS COMPARISON: CT ABDOMEN/PELVIS WITH CONTRAST FINDINGS: ALIGNMENT: 4 mm L4-5 anterolisthesis. VERTEBRAE: Bones demineralized. Vertebral body heights preserved. DISCS: Disc height loss with endplate sclerosis and marginal osteophytes at L4-5 and L5-S1. FACETS: Facet arthropathy L4-S1. PARASPINAL SOFT TISSUES: Mild constipation. Mild bony proliferative changes of sacroiliac joints on oblique views. Procedure Note Neyda Christianson MD - 04/20/2023 XR LUMBOSACRAL SPINE 4 OR MORE VIEWS COMPARISON: CT ABDOMEN/PELVIS WITH CONTRAST FINDINGS: ALIGNMENT: 4 mm L4-5 anterolisthesis. VERTEBRAE: Bones demineralized. Vertebral body heights preserved. DISCS: Disc height loss with endplate sclerosis and marginal osteophytesat L4-5 and L5-S1. FACETS: Facet arthropathy L4-S1. PARASPINAL SOFT TISSUES: Mild constipation. Mild bony proliferativechanges of sacroiliac joints on oblique views. IMPRESSION: Moderate lower lumbar spine degenerative change most pronounced at L5-S1,similar to prior CT. Lexi Fisher MD IMG XR SPINE Final Result documented in this encounter Visit Diagnoses Diagnosis Neck pain of over 3 months duration- Primary Low back pain of over 3 months duration Low back pain of over 3 months duration Neck pain of over 3 months duration documented in this encounter Care Teams Rheostat Assembler Relationship Specialty Start Date End Date Abigail Jason MD [facility] [place] [address] [email or web address] PCP - General Family Medicine 10/22/2204/11 Lexi Fisher MD [address] [place] [address] [email or web address] PCP - General Family Medicine 04/12/24 Checo Mario MD [address] [place] [address], [address] [place] [address] Neurology 11/29/18 Marc Mario MD [address] [place] [address], [facility] [address] [place] [address] Psychiatry 11/29/18 Francois Salazar MD [email or web address] Primary Oncologist Neurology 01/03/19 Randi Rich Psy.D. [address] [place] [address], [address] [place] [address] Psychologist 11/30/18 documented as of this encounter Additional Source Comments The information contained in this document represents components of the legal health record. It is not the complete legal health record.[facility]
--- OUTSIDE RECORDS SUMMARY | 2025-10-04 17:56 | XMS_ITS | Encounter Summary ---
Author Organization [facility] Address [address] [place] [address] Phone Care Team Providers Care Underlay Stitcher Name Role Phone Carlitos Castro MD Primary Care Provider [phone] Checo Mario MD Unavailable Marc Mario MD Unavailable [phone] Francois Salazar MD Unavailable [email or web address] Abigail Jason MD Primary Care Provider [phone] Lexi Fisher MD Primary Care Provider Reason for Referral * Physical Therapy (Routine) - Closed Specialty Diagnoses / Procedures Referred By Lucina vogel Referred To Contact Physical Therapy Diagnoses Encounter for rehabilitation Funmi Mosqueda PA [address] [address] Phone: tel: fax: [facility] [address] [place] [address] Phone: tel: Referral ID Status Reason Start Date Expiration Date Visits Re quested Visits Authorized [id number] Closed 07/11/2019 09/22/2019 1 1 Encounter Details Date Type Department Care Team (Latest Contact Info) Description 07/11/2019 Transcribe Orders [facility] [address] [place] [address] Funmi Mosqueda PA [address] [address] Encounter for rehabilitation (Primary Dx) Social History Tobacco Use Types [...] as of this encounter Plan of Treatment Scheduled Referrals Name Type Priority Associated Diagnoses Orde r Schedule Ambulatory referral to [facility] Physical Therapy Outpatient Referral Routine Encounter for rehabilitation Ordered: 07/11/2019 documented as of this encounter Visit Diagnoses Diagnosis Encounter for rehabilitation- Primary documented in this encounter Care Teams Underlay Stitcher Relationship Specialty Start Date End Date Carlitos Castro MD [address] [place] [address] PCP - General Internal Medicine 11/29/18 10/21/22 Abigail Jason MD [address] [place] [address] [email or web address] PCP - General Family Medicine 10/22/2204/11 Lexi Fisher MD [address] [place] [address] [email or web address] PCP - General Family Medicine 04/12/24 Checo Mario MD [address] [place] [address], [address] [place] [address] Neurology 11/29/18 Marc Mario MD [address] [place] [address], [address] [place] [address] [email or web address] Psychiatry 11/29/18 Francois Salazar MD [email or web address] Primary Oncologist Neurology 01/03/19 Randi Rich Psy.D. [address] [place] [address] [address] [place] [address] Psychologist 11/30/18 documented as of this encounter Additional Source Comments The information contained in this document represents components of the legal health record. It is not the complete legal health record.[facility]
--- OUTSIDE RECORDS SUMMARY | 2025-10-04 17:56 | XMS_ITS | Encounter Summary ---
Author Organization [facility] Address [address] [place] [address] Phone Care Team Providers Care Environmental Conflict Manager Name Role Phone Carlitos Castro MD Primary Care Provider [phone] Checo Mario MD Unavailable [phone] Marc Mario MD Unavailable Francois Salazar MD Unavailable SAROJ [email or web address] Abigail Jason MD Primary Care Provider [phone] Lexi Fisher MD Primary Care Provider [phone] Encounter Details Date Type Department Care Team (Latest Contact Info) Description 05/28/2022 Transcribe Orders Virtual Department [address] [place] [address] Lexi Fisher MD [address] [place] [address] [email or web address] Aspergillosis (Primary Dx) Social History Tobacco Use Types [...] on file 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 Not on file Not on file documented as of this encounter Plan of Treatment Not on file documented as of this encounter Visit Diagnoses Diagnosis Aspergillosis- Primary documented in this encounter Care Teams Environmental Conflict Manager Relationship Specialty Start Date End Date Carlitos Castro MD [address] [place] [address] PCP - General Internal Medicine 11/29/18 10/21/22 Abigail Jason MD [address] [place] [address] [email or web address] PCP - General Family Medicine 10/22/2204/11 Lexi Fisher MD [address] [place] [address] [email or web address] PCP - General Family Medicine 04/12/24 Checo Mario MD [address] [place] [address], [address] [place] [address] Neurology 11/29/18 Marc Mario MD [address] [place] [address], [address] [place] [address] Psychiatry 11/29/18 Francois Salazar MD [email or web address] Primary Oncologist Neurology 01/03/19 Randi Rich Psy.D. [address] [place] [address] [address] [place] [address] Psychologist 11/30/18 documented as of this encounter Additional Source Comments The information contained in this document represents components of the legal health record. It is not the complete legal health record.[facility]
--- OUTSIDE RECORDS SUMMARY | 2025-10-04 17:56 | XMS_ITS | Encounter Summary ---
Author Organization [facility] Address [address] [place] [address] Phone Care Team Providers Care Head Mechanic Name Role Phone Checo Mario MD Unavailable [phone] Marc Mario MD Unavailable [phone] Francois Salazar MD Unavailable SAROJ [email or web address] Lexi Fisher MD Primary Care Provider + [phone] Reason for Referral * MRI/CAT Scan - Closed Specialty Diagnoses / Procedures Referred By Contac t Referred To Contact Radiology Diagnoses Bilateral leg weakness Procedures MRI Lumbar Spine CHG MRI, LUMBAR SPINE Lexi Fisher MD [address] [place], [place] Phone: tel: fax: [email or web address] Referral ID Status Reason Start Date Expiration Date Visits Re quested Visits Authorized [id number] Closed 09/03/2025 10/23/2025 1 1 Encounter Details Date Type Department Care Team (Late st Contact Info) Description 09/06/2025 Transcribe Orders Virtual Department [address] [place] [address] Lexi Fisher MD [address] [place] [address] [email or web address] Bilateral leg weakness (Primary Dx) Social History Tobacco Use Types [...] on file 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 COMPARISON: MRI CERVICAL/THORACIC/LUMBAR SPINE WITHOUT [id number] FINDINGS: LUMBAR SPINE: Alignment and Vertebrae: 0.4 [...] L4-5,without specific evidence for nerve root impingement. Lexi Fisher MD IMG MR XSPECIALTY Final Resu lt documented in this encounter Visit Diagnoses Diagnosis Bilateral leg weakness- Primary Muscle weakness (generalized) Bilateral leg weakness Muscle weakness (generalized) documented in this encounter Care Teams Head Mechanic Relationship Specialty Start Date End Date Lexi Fisher MD [address] [place] [address] PCP - General Family Medicine 04/12/24 Checo Mario MD [address] [place] [address], [address] [place] [address] Neurology 11/29/18 Marc Mario MD [address] [place] [address], [address] [place] [address] Psychiatry 11/29/18 Francois Salazar MD [email or web address] Primary Oncologist Neurology 01/03/19 Randi Rich Psy.D. [address] [place] [address] Psychologist 11/30/18 documented as of this encounter Additional Source Comments The information contained in this document represents components of the legal health record. It is not the complete legal health record.[facility]
--- OUTSIDE RECORDS SUMMARY | 2025-10-04 17:56 | XMS_ITS | Encounter Summary ---
Author Organization [facility] Address [address] [place] [address] Phone Care Team Providers Care Preforming Machine Operator Name Role Phone Checo Mario MD Unavailable [phone] Marc Mario MD Unavailable [phone] Francois Salazar MD Unavailable [email or web address] [email or web address] Abigail Jason MD Primary Care Provider [phone] Lexi Fisher MD Primary Care Provider [phone] Encounter Details Date Type Department Care Team (Late st Contact Info) Description 05/30/2023 Procedure Pass [facility], [address] [address] Social History Tobacco Use Types Packs/Day Years [...] on file 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 Not on file documented as of this encounter Plan of Treatment Not on file documented as of this encounter Visit Diagnoses Not on filedocumented in this encounter Care Teams Preforming Machine Operator Relationship Specialty Start Date End Date Abigail Jason MD [address] [place] [address] [email or web address] PCP - General Family Medicine 10/22/2204/11 Lexi Fisher MD [address] [place] [address] PCP - General Family Medicine 04/12/24 Checo Mario MD [address] [place] [address], [address] [place] [address] Neurology 11/29/18 Marc Mario MD [address] [place] [address] 203 [place] [address] Psychiatry 11/29/18 Francois Salazar MD [email or web address] Primary Oncologist Neurology 01/03/19 Randi Rich Psy.D. [address] [place] [address] [address] [place] [address] Psychologist 11/30/18 documented as of this encounter Additional Source Comments The information contained in this document represents components of the legal health record. It is not the complete legal health record.[facility]
--- OUTSIDE RECORDS SUMMARY | 2025-10-04 17:57 | XMS_ITS | Encounter Summary ---
Author Organization [facility] Address [address] [place] [address] Phone Care Team Providers Care Ice Cream Truck Driver Name Role Phone Checo Mario MD Unavailable [phone] Marc Mario MD Unavailable [phone] Francois Salazar MD Unavailable JTJORDAlessio [email or web address] Abigail Jason MD Primary Care Provider [phone] Lexi Fisher MD Primary Care Provider [phone] Encounter Details Date Type Department Care Team (Late st Contact Info) Description 03/07/2024 Procedure Pass [facility], [address] [address] Social History Tobacco Use Types Packs/Day Years [...] on file 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 Not on file documented as of this encounter Plan of Treatment Not on file documented as of this encounter Visit Diagnoses Not on filedocumented in this encounter Care Teams Ice Cream Truck Driver Relationship Specialty Start Date End Date Abigail Jason MD [address] [place] [address] [email or web address] PCP - General Family Medicine 10/22/2204/11 Lexi Fisher MD [address] [place] [address] PCP - General Family Medicine 04/12/24 Checo Mario MD [address] [place] [address], [address] [place] [address] Neurology 11/29/18 Marc Mario MD [address] [place] [address] [address] [place] [address] Psychiatry 11/29/18 Francois Salazar MD [email or web address] Primary Oncologist Neurology 01/03/19 Randi Rich Psy.D. [address] [place] [address] 202 [place] [address] Psychologist 11/30/18 documented as of this encounter Additional Source Comments The information contained in this document represents components of the legal health record. It is not the complete legal health record.[facility]
--- OUTSIDE RECORDS SUMMARY | 2025-10-04 17:57 | XMS_ITS | Encounter Summary ---
Author Organization [facility] Address [address] [place] [address] Phone Care Team Providers Care Bottoming Room Supervisor Name Role Phone Theresa Shah MD Primary Care Provi dmitry Carlitos Castro MD Primary Care Provider [phone] Checo Mario MD Unavailable Marc Mario MD Unavailable Francois Salazar MD Unavailable SAROJ [email or web address] Abigail Jason MD Primary Care Provider [phone] Lexi Fisher MD Primary Care Provider [phone] Encounter Details Date Type Department Care Team (Latest Contact Info) Description 08/22/2017 Ancillary Orders Virtual Department [address] [place] [address] Carroll Chamberlain MD [address] [place] [id number] [email or web address] Generalized abdominal discomfort; Constipation, unspecified constipation type Social History Tobacco Use Types Packs/Day Years Used Date Smoking Tobacco: Never Assessed Comments Unknown Sex and Gender Information Value Date Recorded Sex Assigned at Female 03/02/2018 12:27 PM EDT Legal Sex Female 5:09 PM EST Gender Identity Female 03/02/2018 12:27 PM EDT Sexual Orientation Straight 03/02/2018 12 :27 PM EDT documented as of this encounter Plan of Treatment Not on file documented as of this encounter Visit Diagnoses Diagnosis Generalized abdominal discomfort Constipation, unspecified constipation type documented in this encounter Care Teams Bottoming Room Supervisor Relationship Specialty Start Date End Date Theresa Shah MD [email or web address] PCP - General Internal Medicine 08/22/1711/28/18 Carlitos Castro MD [address] [place] [address] PCP - General Internal Medicine 11/29/18 10/21/22 Abigail Jason MD [address] [place] [address] [email or web address] PCP - General Family Medicine 10/22/2204/11 Lexi Fisher MD [address] [place] [address] [email or web address] PCP - General Family Medicine 04/12/24 Checo Mario MD [address] [place] [address], [address] [place] [address] Neurology 11/29/18 Marc Mario MD [address] [place] [address], [address] [place] [address] Psychiatry 11/29/18 Francois Salazar MD [email or web address] Primary Oncologist Neurology 01/03/19 Randi Rich Psy.D. [address] [place] [address] [address] [place] [address] Psychologist 11/30/18 documented as of this encounter Additional Source Comments The information contained in this document represents components of the legal health record. It is not the complete legal health record.[facility]
--- OUTSIDE RECORDS SUMMARY | 2025-10-04 17:57 | XMS_ITS | Encounter Summary ---
Author Organization [facility] Address [address] [place] [address] Phone Care Team Providers Care Neonatal Icu Coordinator Name Role Phone Theresa Shah MD Primary Care Provi dmitry Carlitos Castro MD Primary Care Provider [phone] Checo Mario MD Unavailable [phone] Marc Mario MD Unavailable Francois Salazar MD Unavailable SAROJ [email or web address] Abigail Jason MD Primary Care Provider [phone] Lexi Fisher MD Primary Care Provider Encounter Details Date Type Department Care Team (Late st Contact Info) Description 09/12/2017 Ancillary Orders [facility] External Provider Virtual Department [address] [place] [address] Theresa Shah MD [address] [place] [address] [email or web address] Screening breast examination Social History Tobacco Use Types Packs/Day Years [...] as of this encounter Visit Diagnoses Diagnosis Screening breast examination Other screening breast examination documented in this encounter Care Teams Neonatal Icu Coordinator Relationship Specialty Start Date End Date Theresa Shah MD PCP - General Internal Medicine 08/22/1711/28/18 Carlitos Castro MD [address] [place] [address] PCP - General Internal Medicine 11/29/18 10/21/22 Abigail Jason MD [address] [place] [address] [email or web address] PCP - General Family Medicine 10/22/2204/11 Lexi Fisher MD [address] [place] [address] [email or web address] PCP - General Family Medicine 04/12/24 Checo Mario MD [address] [place], [place] [address] [place] [address] Neurology 11/29/18 Marc Mario MD [address] [place] [address] [address] [place] [address] Psychiatry 11/29/18 Francois Salazar MD [email or web address] Primary Oncologist Neurology 01/03/19 Randi Rich Psy.D. [address] [place] [address] Psychologist 11/30/18 documented as of this encounter Additional Source Comments The information contained in this document represents components of the legal health record. It is not the complete legal health record.[facility]
--- OUTSIDE RECORDS SUMMARY | 2025-10-04 17:57 | XMS_ITS | Encounter Summary ---
Author Organization [facility] Address [address] [place] [address] Phone Care Team Providers Care Ginning Operator Name Role Phone Checo Mario MD Unavailable [phone] Marc Mario MD Unavailable [phone] Francois Salazar MD Unavailable [email or web address] [email or web address] Abigail Jason MD Primary Care Provider [phone] Lexi Fisher MD Primary Care Provider + [phone] Reason for Referral * MRI/CAT Scan - Closed Specialty Diagnoses / Procedures Referred By Contac t Referred To Contact Radiology Diagnoses Endometrial cancer Abdominal distension Procedures CT Abdomen/Pelvis CHG CT SCAN,ABDOMENT AND PELVIS,W CONTRAST Bianka Logan MD [address] [address] Phone: tel: fax: Referral ID Status Reason Start Date Expiration Date Visits Re quested Visits Authorized [id number] Closed 09/01/2023 10/24/2023 1 1 Encounter Details Date Type Department Care Team (Latest Contact Info) Description 09/06/2023 Transcribe Orders Virtual Department [address] [place] [address] Bianka Logan MD [address] [address] Endometrial cancer (Primary Dx); Abdominal distension Social History Tobacco Use Types Packs/Day Years [...] on file 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 Low-density lesions at the uterus which again may reflect uterine fibroids. Consider pelvic sonography for further evaluation as indicated clinically. No CT evidence of metastatic disease in the abdomen or pelvis. 2. Mild bladder wall thickening which may be accentuated by degree of underdistention. Correlation with urinalysis recommended. Narrative 09/26/2023 2:[address] ABDOMEN/PELVIS WITH CONTRAST Referring clinician's provided indication for this examination in Epic: Outside Radiology Order; ENDOMETRIAL CANCER TECHNIQUE: Multidetector-row CT of the abdomen and pelvis was performed after administration of intravenous contrast using tailored dose modulation techniques. Images were reconstructed in the axial, coronal, and sagittal planes. COMPARISON: CT abdomen pelvis 11/22/2027 FINDINGS: Lower Chest: There is a similar sub-pleural 4 mm right lower lobe pulmonary nodule (4:12). Similar thin-walled scattered cysts are demonstrated. No new pulmonary nodules. No consolidation or pleural effusions. Liver: Redemonstration of hepatic cysts, similar. No suspicious focal lesions. Biliary: No biliary ductal dilatation. Spleen: No splenomegaly or focal lesions. Pancreas: Mild pancreatic lipoatrophy. No masses or ductal dilatation. Adrenal Glands: No nodules. Kidneys/Ureters: Similar prominence of the bilateral extrarenal pelvis. No solid masses, stones, or hydronephrosis. Bowel: Normal appendix. A moderate volume of stool is demonstrated throughout the colon.. No distention or wall thickening. Peritoneum/Retroperitoneum: No masses, pneumoperitoneum, or fluid. Lymph Nodes: No lymphadenopathy. Pelvic Organs/Bladder: The urinary bladder is mildly distended. Mild bladder wall thickening which may be accentuated by degree of underdistention. Low-density lesions at the uterus which again may reflect uterine fibroids. Vessels: No abdominal aortic aneurysm. Bones/Soft Tissues: Similar grade 1 anterolisthesis of L4 over L5. Multilevel degenerative changes of the spine. No destructive osseous lesions. Procedure Note Sadie Christine MD - 09/26/2023 CT ABDOMEN/PELVIS WITH CONTRAST Referring clinician's provided indication for this examination in Epic:Outside Radiology Order; ENDOMETRIAL CANCER TECHNIQUE: Multidetector-row CT of the abdomen and pelvis was performedafter administration of intravenous contrast using tailored dosemodulation techniques. Images were reconstructed in the axial, coronal,and sagittal planes. COMPARISON: CT abdomen pelvis 11/22/2027 FINDINGS: Lower Chest: There is a similar sub-pleural 4 mm right lower lobepulmonary nodule (4:12). Similar thin-walled scattered cysts aredemonstrated. No new pulmonary nodules. No consolidation or pleuraleffusions. Liver: Redemonstration of hepatic cysts, similar. No suspicious focallesions. Biliary: No biliary ductal dilatation. Spleen: No splenomegaly or focal lesions. Pancreas: Mild pancreatic lipoatrophy. No masses or ductal dilatation. Adrenal Glands: No nodules. Kidneys/Ureters: Similar prominence of the bilateral extrarenal pelvis. Nosolid masses, stones, or hydronephrosis. Bowel: Normal appendix. A moderate volume of stool is demonstratedthroughout the colon.. No distention or wall thickening. Peritoneum/Retroperitoneum: No masses, pneumoperitoneum, or fluid. Lymph Nodes: No lymphadenopathy. Pelvic Organs/Bladder: The urinary bladder is mildly distended. Mildbladder wall thickening which may be accentuated by degree ofunderdistention. Low-density lesions at the uterus which again may reflectuterine fibroids. Vessels: No abdominal aortic aneurysm. Bones/Soft Tissues: Similar grade 1 anterolisthesis of L4 over L5.Multilevel degenerative changes of the spine. No destructive osseouslesions. IMPRESSION: 1. Low-density lesions at the uterus which again may reflect uterinefibroids. Consider pelvic sonography for further evaluation as indicatedclinically. No CT evidence of metastatic disease in the abdomen orpelvis. 2. Mild bladder wall thickening which may be accentuated by degree ofunderdistention. Correlation with urinalysis recommended. Bianka Logan MD IMG CT ABD/PELVIS Final R esult documented in this encounter Visit Diagnoses Diagnosis Endometrial cancer- Primary Malignant neoplasm of corpus uteri, except isthmus Abdominal distension Flatulence, eructation, and gas pain Endometrial cancer Malignant neoplasm of corpus uteri, except isthmus Abdominal distension Flatulence, eructation, and gas pain documented in this encounter Care Teams Ginning Operator Relationship Specialty Start Date End Date Abigail Jason MD [address] [place] [address] [email or web address] PCP - General Family Medicine 10/22/2204/11 Lexi Fisher MD [address] [place] [address] [email or web address] PCP - General Family Medicine 04/12/24 Checo Mario MD [address] [place] [address], [address] [place] [address] Neurology 11/29/18 Marc Mario MD [address] [place] [address], [address] [place] [address] Psychiatry 11/29/18 Francois Salazar MD [email or web address] Primary Oncologist Neurology 01/03/19 Randi Rich Psy.D. [address] [place] [address] [address] [place] [address] Psychologist 11/30/18 documented as of this encounter Additional Source Comments The information contained in this document represents components of the legal health record. It is not the complete legal health record.[facility]
--- OUTSIDE RECORDS SUMMARY | 2025-10-04 17:57 | XMS_ITS | Encounter Summary ---
Author Organization [facility] Address [address] [place] [address] Phone Care Team Providers Care Resident Medical Officer Name Role Phone Checo Mario MD Unavailable [phone] Marc Mario MD Unavailable [phone] Francois Salazar MD Unavailable [email or web address] [email or web address] Abigail Jason MD Primary Care Provider + [phone] Lexi Fisher MD Primary Care Provider + [phone] Encounter Details Date Type Department Care Team (Late st Contact Info) Description 04/11/2024 Procedure Pass [facility], Ct Scan - [address] [address] Social History Tobacco Use Types Packs/Day Years [...] your housing situation today? 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 Wish to be (Past 1 Month) No 024 3:26 PM EDT Karen Rivero, RN 2. Non-Specific Active Suici pernell Thoughts (Past 1 Month) No 04/11/2024 3:26 PM EDT Karen Rivero, RN 6. Suicidal Behavior (Lifetime) No 4 3:26 PM EDT Karen Rivero, RN documented as of this encounter Plan of Treatment Not on file documented as of this encounter Visit Diagnoses Not on filedocumented in this encounter Care Teams Resident Medical Officer Relationship Specialty Start Date End Date Abigail Jason MD [address] [place] [address] [email or web address] PCP - General Family Medicine 10/22/2204/11 Lexi Fisher MD [address] [place] [address] [email or web address] PCP - General Family Medicine 04/12/24 Checo Mario MD [address] [place] [address], [address] [place] [address] Neurology 11/29/18 Marc Mario MD [address] [place] [address], [address] [place] [address] Psychiatry 11/29/18 Francois Salazar MD [email or web address] Primary Oncologist Neurology 01/03/19 Randi Rich Psy.D. [address] [place] [address] Psychologist 11/30/18 documented as of this encounter Additional Source Comments The information contained in this document represents components of the legal health record. It is not the complete legal health record.[facility]
--- OUTSIDE RECORDS SUMMARY | 2025-10-04 17:57 | XMS_ITS | Encounter Summary ---
Author Organization [facility] Address [address] [place] [address] Phone Care Team Providers Care Student Loan Counselor Name Role Phone Theresa Shah MD Primary Care Provi dmitry Carlitos Castro MD Primary Care Provider [phone] Checo Mario MD Unavailable Marc Mario MD Unavailable Francois Salazar MD Unavailable SAROJ [email or web address] Abigail Jason MD Primary Care Provider [phone] Lexi Fisher MD Primary Care Provider [phone] Encounter Details Date Type Department Care Team (Late st Contact Info) Description 12/21/2017 Ancillary Orders Virtual Department [address] [place] [address] Theresa Shah MD [address] [place] [address] [email or web address] Pain in both knees, unspecified chronicity Social History Tobacco Use Types Packs/Day Years [...] as of this encounter Visit Diagnoses Diagnosis Pain in both knees, unspecified chronicity documented in this encounter Care Teams Student Loan Counselor Relationship Specialty Start Date End Date Theresa hSah MD [email or web address] PCP - General Internal Medicine 08/22/1711/28/18 Carlitos Castro MD [address] [place] [address] PCP - General Internal Medicine 11/29/18 10/21/22 Abigail Jason MD [address] [place] [address] [email or web address] PCP - General Family Medicine 10/22/2204/11 Lexi Fisher MD [address] [place] [address] [email or web address] PCP - General Family Medicine 04/12/24 Checo Mario MD [address] [place] [address], [address] [place] [address] Neurology 11/29/18 Marc Mario MD [address] [place] [address] [address] [place] [address] Psychiatry 11/29/18 Francois Salazar MD [email or web address] Primary Oncologist Neurology 01/03/19 Randi Rich Psy.D. [address] [place] [address] [address] [place], [place] [id number] Psychologist 11/30/18 documented as of this encounter Additional Source Comments The information contained in this document represents components of the legal health record. It is not the complete legal health record.[facility]
--- OUTSIDE RECORDS SUMMARY | 2025-10-04 17:57 | XMS_ITS | Encounter Summary ---
Author Organization [facility] Address [address] [place] [address] Phone Care Team Providers Care Slag Worker Name Role Phone Checo Mario MD Unavailable [phone] Marc Mario MD Unavailable [phone] Francois Salazar MD Unavailable [email or web address] Abigail Jason MD Primary Care Provider [phone] Lexi Fisher MD Primary Care Provider + [phone] Encounter Details Date Type Department Care Team (Late st Contact Info) Description 04/11/2024 Procedure Pass [facility], [address] [address] Social History Tobacco Use Types Packs/Day Years [...] on file 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 Wish to be (Past 1 Month) No 06/19/2 024 3:26 PM EDT Karen Rivero, RN 2. Non-Specific Active Suici pernell Thoughts (Past 1 Month) No 04/11/2024 3:26 PM EDT Karen Rivero, RN 6. Suicidal Behavior (Lifetime) No 4 3:26 PM EDT Karen Rivero, RN documented as of this encounter Plan of Treatment Not on file documented as of this encounter Visit Diagnoses Not on filedocumented in this encounter Care Teams Slag Worker Relationship Specialty Start Date End Date Abigail Jason MD [address] [place] [address] [email or web address] PCP - General Family Medicine 10/22/2204/11 Lexi Fisher MD [address] [place] [address] [email or web address] PCP - General Family Medicine 04/12/24 Checo Mario MD [address] [place] [address], [address] [place] [address] Neurology 11/29/18 Marc Mario MD [address] [place] [address], [address] [place] [address] Psychiatry 11/29/18 Francois Salazar MD [email or web address] Primary Oncologist Neurology 01/03/19 Randi Rich Psy.D. [address] [place] [address] [address] [place] [address] Psychologist 11/30/18 documented as of this encounter Additional Source Comments The information contained in this document represents components of the legal health record. It is not the complete legal health record.[facility]
--- OUTSIDE RECORDS SUMMARY | 2025-10-04 17:57 | XMS_ITS | Encounter Summary ---
Author Organization [facility] Address [address] [place] [address] Phone Care Team Providers Care Sales And Service Specialist Name Role Phone Checo Mario MD Unavailable [phone] Marc Mario MD Unavailable [phone] Francois Salazar MD Unavailable [email or web address] [email or web address] Abigail Jason MD Primary Care Provider [phone] Lexi Fisher MD Primary Care Provider [phone] Reason for Referral * MRI/CAT Scan - Closed Specialty Diagnoses / Procedures Referred By Contac t Referred To Contact Radiology Diagnoses Neurofibromatosis, 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 Procedures MRI Face CHG MRI, FACE, NECK, COMBO Lexi Fisher MD Phone: tel: fax: mailto:[email or web address] Referral ID Status Reason Start Date Expiration Date Visits Re quested Visits Authorized [id number] Closed 06/21/2023 10/21/2023 1 1 Encounter Details Date Type Department Care Team (Late st Contact Info) Description 06/30/2023 Transcribe Orders Virtual Department [address] [place] [address] Lexi Fisher MD [address] [place] [address] [email or web address] Neurofibromatosis, type 1 (Primary Dx); Double vision [...] on file 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 Narrative 08/07/2023 10:44 PM EDT MRI FACE (ORBITS) WITH AND WITHOUT CONTRAST TECHNIQUE: Multi-sequence, multi-planar MRI of the orbits was performed with and without intravenous contrast. COMPARISON: None FINDINGS: Optic Nerves and Chiasm: Normal. No signal abnormality or mass. Orbital Fat: Normal. No fat stranding. Ocular Globes: Normal. No abnormality or abnormal enhancement. Extraocular Muscles: Normal. No enlargement. Lacrimal Glands: Normal. No enlargement, inflammatory change, or mass. Pre-Orbital Soft Tissues: Normal. No fat stranding. . Visualized Brain: There is mild scattered T2/FLAIR hyperintensity in the periventricular and deep white matter which is nonspecific and can be seen in the setting of chronic small vessel disease. No hemorrhage. Visualized Paranasal Sinuses: Normal. No mucosal inflammation or fluid. Procedure Note Rober Bedoya MD - 08/07/2023 MRI FACE (ORBITS) WITH AND WITHOUT CONTRAST TECHNIQUE: Multi-sequence, multi-planar MRI of the orbits was performedwith and without intravenous contrast. COMPARISON: None FINDINGS: Optic Nerves and Chiasm: Normal. No signal abnormality or mass. Orbital Fat: Normal. No fat stranding. Ocular Globes: Normal. No abnormality or abnormal enhancement. Extraocular Muscles: Normal. No enlargement. Lacrimal Glands: Normal. No enlargement, inflammatory change, or mass. Pre-Orbital Soft Tissues: Normal. No fat stranding. . Visualized Brain: There is mild scattered T2/FLAIR hyperintensity in theperiventricular and deep white matter which is nonspecific and can be seenin the setting of chronic small vessel disease. No hemorrhage. Visualized Paranasal Sinuses: Normal. No mucosal inflammation or fluid. IMPRESSION: No evidence of optic glioma or other cause for the reported symptomsidentified. 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 open documented in this encounter Care Teams Sales And Service Specialist Relationship Specialty Start Date End Date Abigail Jason MD [address] [place] [address] PCP - General Family Medicine 10/22/2204/11 Lexi Fisher MD [address] [place] [address] PCP - General Family Medicine 04/12/24 Checo Mario MD [address] [place] [address], [address] [place] [address] Neurology 11/29/18 Marc Mario MD [address] [place] [address], [address] [place] [address] Psychiatry 11/29/18 Francois Salazar MD [email or web address] Primary Oncologist Neurology 01/03/19 Randi Rich Psy.D. [address] [place] [address], [address] [place] [address] Psychologist 11/30/18 documented as of this encounter Additional Source Comments The information contained in this document represents components of the legal health record. It is not the complete legal health record.[facility]
--- OUTSIDE RECORDS SUMMARY | 2025-10-04 17:57 | XMS_ITS | Encounter Summary ---
Author Organization [facility] Address [address] [place] [address] Phone Care Team Providers Care Press Operator Printing Name Role Phone Checo Mario MD Unavailable [phone] Marc Mario MD Unavailable [phone] Francois Salazar MD Unavailable [email or web address] [email or web address] Abigail Jason MD Primary Care Provider + [phone] Lexi Fisher MD Primary Care Provider + [phone] Encounter Details Date Type Department Care Team (Late st Contact Info) Description 04/11/2024 Procedure Pass [facility], Ct Scan - [address] [address] Social History Tobacco Use Types Packs/Day Years [...] on file 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 Not on file Not on file documented as of this encounter Functional Status * Calculated C-SSRS Risk Score (Lifetime/Recent) Answer Date of Assessment Author No Risk Indicated 04/11/2024 3:26 PM EDT Karen Barnett, RN * [place] Suicide Severity Rating Scale (Screener/Recent Self-Report) Question [...] on filedocumented in this encounter Care Teams Press Operator Printing Relationship Specialty Start Date End Date Abigail Jason MD [address] [place] [address] [email or web address] PCP - General Family Medicine 10/22/2204/11 Lexi Fisher MD [address] [place] [address] [email or web address] PCP - General Family Medicine 04/12/24 Checo Mario MD [address] [place] [address], [address] [place] [address] Neurology 11/29/18 Marc Mario MD [address] [place] [address], [address] [place] [address] Psychiatry 11/29/18 Francois Salazar MD [email or web address] Primary Oncologist Neurology 01/03/19 Randi Rich Psy.D. [address] [place] [address] Psychologist 11/30/18 documented as of this encounter Additional Source Comments The information contained in this document represents components of the legal health record. It is not the complete legal health record.[facility]
--- OUTSIDE RECORDS SUMMARY | 2025-10-04 17:57 | XMS_ITS | Encounter Summary ---
Author Organization [facility] Address [address] [place] [address] Phone Care Team Providers Care Cement Based Materials Pump Tender Name Role Phone Checo Mario MD Unavailable [phone] Marc Mario MD Unavailable [phone] Francois Salazar MD Unavailable [email or web address] Abigail Jason MD Primary Care Provider [phone] Lexi Fisher MD Primary Care Provider Encounter Details Date Type Department Care Team (Latest Contact Info) Description 03/07/2024 Transcribe Orders Virtual Department 30 [place] [address] Gardners, Bianka Matson MD [address] [id number] Endometrial cancer (Primary Dx) Social History Tobacco [...] on file 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 Not on file Not on file documented as of this encounter Plan of Treatment Not on file documented as of this encounter Visit Diagnoses Diagnosis Endometrial cancer- Primary Malignant neoplasm of corpus uteri, except isthmus documented in this encounter Care Teams Cement Based Materials Pump Tender Relationship Specialty Start Date End Date Abigail Jason [facility] [place] [address] [email or web address] PCP - General Family Medicine 10/22/2204/11 Lexi Fisher MD [address] [place] [address] [email or web address] PCP - General Family Medicine 04/12/24 Checo Mario MD [address] [place] [address], [address] [place] [address] Neurology 11/29/18 Marc Mario MD [address] [place] [address], [address] [place] [address] Psychiatry 11/29/18 Francois Salazar MD [email or web address] Primary Oncologist Neurology 01/03/19 Randi Rich Psy.D. [address] [place] [address], [address] [place] [address] Psychologist 11/30/18 documented as of this encounter Additional Source Comments The information contained in this document represents components of the legal health record. It is not the complete legal health record.[facility]
--- OUTSIDE RECORDS SUMMARY | 2025-10-04 17:57 | XMS_ITS | Encounter Summary ---
Author Organization [facility] Address [address] [place] [address] Phone Care Team Providers Care Supervisor Carding Name Role Phone Checo Mario MD Unavailable [phone] Marc Mario MD Unavailable [phone] Francois Salazar MD Unavailable [email or web address] Abigail Jason MD Primary Care Provider [phone] Lexi Fisher MD Primary Care Provider [phone] Encounter Details Date Type Department Care Team (Late st Contact Info) Description 09/06/2023 Procedure Pass [facility], Ct Scan - [address] [address] Social History Tobacco Use Types Packs/Day Years [...] on file 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 Not on file Not on file documented as of this encounter Plan of Treatment Not on file documented as of this encounter Visit Diagnoses Not on filedocumented in this encounter Care Teams Supervisor Carding Relationship Specialty Start Date End Date Abigail Jason MD [address] [place] [address] [email or web address] PCP - General Family Medicine 10/22/2204/11 Lexi Fisher MD [address] [place] [address] PCP - General Family Medicine 04/12/24 Checo Mario MD [address] [place] [address], [address] [place] [address] Neurology 11/29/18 Marc Mario MD [address] [place] [address] 203 [place] [address] Psychiatry 11/29/18 Francois Salazar MD [email or web address] Primary Oncologist Neurology 01/03/19 Randi Rich Psy.D. [address] [place] [address] 202 [place] [address] Psychologist 11/30/18 documented as of this encounter Additional Source Comments The information contained in this document represents components of the legal health record. It is not the complete legal health record.[facility]
--- OUTSIDE RECORDS SUMMARY | 2025-10-04 17:57 | XMS_ITS | Encounter Summary ---
Author Organization [facility] Address [address] [place] [address] Phone Care Team Providers Care Reel Tender Name Role Phone Checo Mario MD Unavailable [phone] Marc Mario MD Unavailable [phone] Francois Salazar MD Unavailable [email or web address] Abigail Jason MD Primary Care Provider [phone] Lexi Fisher MD Primary Care Provider [phone] Encounter Details Date Type Department Care Team (Late st Contact Info) Description 06/30/2023 Procedure Pass [facility], [address] [address] Social History Tobacco Use Types Packs/Day Years [...] on file 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 Not on file Not on file documented as of this encounter Plan of Treatment Not on file documented as of this encounter Visit Diagnoses Not on filedocumented in this encounter Care Teams Reel Tender Relationship Specialty Start Date End Date Abigail Jason MD [address] [place] [address] [email or web address] PCP - General Family Medicine 10/22/2204/11 Lexi Fisher MD [address] [place] [address] PCP - General Family Medicine 04/12/24 Checo Mario MD [address] [place] [address], [address] [place] [address] Neurology 11/29/18 Marc Mario MD [address] [place] [address] [address] [place] [address] Psychiatry 11/29/18 Francois Salazar MD [email or web address] Primary Oncologist Neurology 01/03/19 Randi Rich Psy.D. [address] [place] [address] 202 [place] [address] Psychologist 11/30/18 documented as of this encounter Additional Source Comments The information contained in this document represents components of the legal health record. It is not the complete legal health record.[facility]
--- OUTSIDE RECORDS SUMMARY | 2025-10-04 17:57 | XMS_ITS | Encounter Summary ---
Author Organization [facility] Address [address] [place] [address] Phone Care Team Providers Care Telephone Interviewer Name Role Phone Checo Mario MD Unavailable Marc Mario MD Unavailable [phone] Francois Salazar MD Unavailable SAROJ [email or web address] Abigail Jason MD Primary Care Provider Lexi Fisher MD Primary Care Provider [phone] Encounter Details Date Type Department Care Team (Late st Contact Info) Description 05/18/2023 Transcribe Orders Virtual Department 30 [place] [address] Lexi Fisher MD [address] [place] [address] [email or web address] Pathological fracture of both radius and ulna of right upper extremity with routine healing, unspecified pathological cause, subsequent encounter (Primary Dx) Social History Tobacco Use Types [...] on file 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 Not on file Not on file documented as of this encounter Plan of Treatment Not on file documented as of this encounter Visit Diagnoses Diagnosis Pathological fracture of both radius and ulna of right upper extremity with routine healing, unspecified pathological cause, subsequent encounter- Primary documented in this encounter Care Teams Telephone Interviewer Relationship Specialty Start Date End Date Abigail Jason MD [address] [address] [email or web address] PCP - General Family Medicine 10/22/2204/11 Lexi Fisher MD [address] [place] [address] [email or web address] PCP - General Family Medicine 04/12/24 Checo Mario MD [address] [place] [address], [address] [place] [address] Neurology 11/29/18 Marc Mario MD [address] [place] [address], [address] [place] [address] Psychiatry 11/29/18 Francois Salazar MD [email or web address] Primary Oncologist Neurology 01/03/19 Randi Rich Psy.D. [address] [place] [address], [place] [address] Psychologist 11/30/18 documented as of this encounter Additional Source Comments The information contained in this document represents components of the legal health record. It is not the complete legal health record.[facility]
--- OUTSIDE RECORDS SUMMARY | 2025-10-04 17:57 | XMS_ITS | Encounter Summary ---
Author Organization [facility] Address [address] [place] [address] Phone Care Team Providers Care Gas Generator Operator Name Role Phone Theresa Shah MD Primary Care Provi dmitry Carlitos Castro MD Primary Care Provider [phone] Checo Mario MD Unavailable [phone] Marc Mario MD Unavailable Francois Salazar MD Unavailable SAROJ [email or web address] Abigail Jason MD Primary Care Provider [phone] Lexi Fisher MD Primary Care Provider Encounter Details Date Type Department Care Team (Late st Contact Info) Description 12/26/2017 Ancillary Orders Virtual Department [address] [place] [address] Hortencia Salas, SONG PLUGGER [address] [place] [address] [address] [place] [address] [email or web address] Hyper reflexia; Reflexes increased; Balance disorder Social History Tobacco Use Types Packs/Day Years [...] as of this encounter Results * MRI CERVICAL SPINE (NEURO) FOCUS WITHOUT CONTRAST (01/04/2018 1:34 PM EDT) Anatomical Region Laterality Modality C-spine Magnetic Resonan ce 01/04/2018 2:31 PM EDT Addenda Addendum by Flavio Osborn MD on 01/30/2018 2:51 PM EDT HISTORY: Cervical pain, numbness in the extremities, history of neurofibromatosis. COMPARISON: <<< MRI CERVICAL >>> spine 03/08/2017. TECHNIQUE: Exam performed on a 1.5 Chelsea high-field MRI scanner. Sagittal T1, T2 and STIR, axial T2* gradient echo and 3-D bright fluid sequences were obtained. FINDINGS: Cervicomedullary junction: No significant abnormalities. Spinal cord: No significant changes. No suspicious signal abnormalities within the spinal cord. C2-C3: No focal disc abnormalities or spinal stenosis has developed. No other significant changes.. C3-C4: Mild disc space narrowing and <<< MINIMAL >>> degenerative endplate changes. Very small broad-based central disc-osteophyte complex. No central canal stenosis. Neural foraminal narrowing on the right which appears mild-moderate. Similar more mild narrowing of the left neuroforamen. C4-C5: Disc space narrowing and degenerative endplate changes appear stable. Similar small broad-based posterior disc-osteophyte complex. Similar narrowing of the central canal without central canal stenosis. Similar prominent narrowing of the left neuroforamen by uncovertebral joint osteophytes and facet arthropathy. More mild narrowing of the right neuroforamen stable. C5-C6: Disc space narrowing and degenerative endplate changes appear stable. Similar broad-based posterior osteophytes and mild thickening of the ligamentum flavum bilaterally. Central canal stenosis, which appears mild-moderate, is stable. Stable bilateral at least moderate bilateral neural foraminal narrowing. C6-C7: Disc space narrowing and degenerative endplate changes appear stable. Broad-based posterior osteophytes and thickening of the ligamentum flavum bilaterally appear stable. Central canal stenosis which appears moderate is essentially stable. Stable bilateral <<< FAIRLY >>> severe neuroforaminal narrowing by uncovertebral <<< JOINT >>> osteophytes and facet arthropathy. C7-T1: No significant abnormalities have developed. Vertebrae: No subluxations. No suspicious marrow signal abnormalities. Soft tissue: No evidence of paravertebral masses. IMPRESSION: No significant changes from 03/08/2017. POS [id number] Edited by: Marlyn Lennon on 01/24/2018 8:10 PM Impressions 01/04/2018 2:47 PM EDT No significant changes from 03/08/2017. POS [id number] Narrative 01/04/2018 2:47 PM EDT HISTORY:. Cervical pain, numbness in the extremities, history of neurofibromatosis. COMPARISON: Right cervix spine 03/08/2017. TECHNIQUE: Exam performed on a 1.5 Chelsea high-field MRI scanner. Sagittal T1, T2 and STIR, axial T2* gradient echo and 3-D bright fluid sequences were obtained. FINDINGS: Cervicomedullary junction: No significant abnormalities. Spinal cord: No significant changes. No suspicious signal abnormalities within the spinal cord. C2-C3: No focal disc abnormalities or spinal stenosis has developed. No other significant changes.. C3-C4: Mild disc space narrowing and normal degenerative endplate changes. Very small broad-based central disc-osteophyte complex. No central canal stenosis. Neural foraminal narrowing on the right which appears mild-moderate. Similar more mild narrowing of the left neuroforamen. C4-C5: Disc space narrowing and degenerative endplate changes appear stable. Similar small broad-based posterior disc-osteophyte complex. Similar narrowing of the central canal without central canal stenosis. Similar prominent narrowing of the left neuroforamen by uncovertebral joint osteophytes and facet arthropathy. More mild narrowing the right neuroforamen stable. C5-C6: Disc space narrowing and degenerative endplate changes appear stable. Similar broad-based posterior osteophytes and mild thickening of ligamentum flavum bilaterally. Central canal stenosis, which appears mild-moderate, is stable. Stable bilateral at least moderate bilateral neural foraminal narrowing. C6-C7: Disc space narrowing and degenerative endplate changes appear stable. Broad-based posterior osteophytes and thickening of ligamentum flavum bilaterally appear stable. Central canal stenosis which appears moderate is essentially stable. Stable bilateral early severe neuroforaminal narrowing by uncovertebral osteophytes and facet arthropathy. C7-T1: No significant abnormalities have developed. Vertebrae: No subluxations. No suspicious marrow signal abnormalities. Soft tissue: No evidence of paravertebral masses. Procedure Note Flavio Osborn MD - 01/04/2018 HISTORY:. Cervical pain, numbness in the extremities, history ofneurofibromatosis. COMPARISON: Right cervix spine 03/08/2017. TECHNIQUE: Exam performed on a 1.5 [place] high-field MRI scanner.Sagittal T1, T2 and STIR, axial T2* gradient echo and 3-D bright fluidsequences were obtained. FINDINGS: Cervicomedullary junction: No significant abnormalities. Spinal cord: No significant changes. No suspicious signal abnormalitieswithin the spinal cord. C2-C3: No focal disc abnormalities or spinal stenosis has developed. Noother significant changes.. C3-C4: Mild disc space narrowing and normal degenerative endplate changes.Very small broad-based central disc-osteophyte complex. No central canalstenosis. Neural foraminal narrowing on the right which appearsmild-moderate. Similar more mild narrowing of the left neuroforamen. C4-C5: Disc space narrowing and degenerative endplate changes appearstable. Similar small broad-based posterior disc-osteophyte complex.Similar narrowing of the central canal without central canal stenosis.Similar prominent narrowing of the left neuroforamen by uncovertebraljoint osteophytes and facet arthropathy. More mild narrowing the rightneuroforamen stable. C5-C6: Disc space narrowing and degenerative endplate changes appearstable. Similar broad-based posterior osteophytes and mild thickening ofligamentum flavum bilaterally. Central canal stenosis, which appearsmild-moderate, is stable. Stable bilateral at least moderate bilateralneural foraminal narrowing. C6-C7: Disc space narrowing and degenerative endplate changes appearstable. Broad-based posterior osteophytes and thickening of ligamentumflavum bilaterally appear stable. Central canal stenosis which appearsmoderate is essentially stable. Stable bilateral early severeneuroforaminal narrowing by uncovertebral osteophytes and facetarthropathy. C7-T1: No significant abnormalities have developed. Vertebrae: No subluxations. No suspicious marrow signal abnormalities. Soft tissue: No evidence of paravertebral masses. IMPRESSION: No significant changes from 03/08/2017. POS [id number] Hortencia Salas SONG PLUGGER IMG MR XSPECIALTY Edited Result - Final documented in this encounter Visit Diagnoses Diagnosis Hyper reflexia Abnormal reflex Reflexes increased Abnormal reflex Balance disorder Hyper reflexia Abnormal reflex Reflexes increased Abnormal reflex Balance disorder documented in this encounter Care Teams Gas Generator Operator Relationship Specialty Start Date End Date Theresa Shah MD [email or web address] PCP - General Internal Medicine 08/22/1711/28/18 Carlitos Castro MD [address] [place] [address] PCP - General Internal Medicine 11/29/18 10/21/22 Abigail Jason MD [address] [place] [address] [email or web address] PCP - General Family Medicine 10/22/2204/11 Lexi Fisher MD [address] [place] [address] [email or web address] PCP - General Family Medicine 04/12/24 Checo Mario MD [address] [place] [address], [address] [place] [address] Neurology 11/29/18 Marc Mario MD [address] [place] [address], [address] [place] [address] Psychiatry 11/29/18 Francois Salazar MD [email or web address] Primary Oncologist Neurology 01/03/19 Randi Rich Psy.D. [address] [place] [address], [place] [address] Psychologist 11/30/18 documented as of this encounter Additional Source Comments The information contained in this document represents components of the legal health record. It is not the complete legal health record.[facility]
--- OUTSIDE RECORDS SUMMARY | 2025-10-04 17:57 | XMS_ITS | Encounter Summary ---
Author Organization [facility] Address [address] [place] [address] Phone Care Team Providers Care Statistics Manager Name Role Phone Theresa Shah MD Primary Care Provi dmitry Carlitos Castro MD Primary Care Provider [phone] Checo Mario MD Unavailable Marc Mario MD Unavailable Francois Salazar MD Unavailable SAROJ [email or web address] Abigail Jason MD Primary Care Provider [phone] Lexi Fisher MD Primary Care Provider [phone] Encounter Details Date Type Department Care Team (Latest Contact Info) Description 01/02/2018 Transcribe Orders [facility] [address] [id number] Checo Mario MD [address] [place] [address], [address] [place], [place] [id number] [email or web address] Routine medical exam (Primary Dx) Social History Tobacco Use Types [...] documented as of this encounter Results * Creatinine/eGFR (01/02/2018 10:15 AM EDT) CREATININE 0.90 0.5 - 1.5 mg/dL [facility] EGFR 69 >59 mL/min/1.7 3m2 [facility] Comment:If patient is black, multiply result by 1.159. The eGFR calculation has changed from the MDRD equation to the CKD-EPI equation as of December 27, 2017. Blood 01/02/2018 10:1 5 AM EDT 01/02/2018 10:20 AM EDT us Checo Mario MD LAB BLOOD BKR ORDERABLES Fin al Result Performing Organization Address City/[facility] Co de Phone Number [address] [address] * BUN (01/02/2018 10:15 AM EDT) BUN 18 6 - 19 mg/dL [facility] Blood 01/02/2018 10:1 5 AM EDT 01/02/2018 10:20 AM EDT us Checo Mario MD LAB BLOOD BKR ORDERABLES Fin al Result Performing Organization Address [facility] Co de Phone Number [address] [address] documented in this encounter Visit Diagnoses Diagnosis Routine medical exam- Primary Routine general medical examination at a health care facility documented in this encounter Care Teams Statistics Manager Relationship Specialty Start Date End Date Theresa Shah MD [email or web address] PCP - General Internal Medicine 08/22/1711/28/18 Carlitos Castro MD [address] [place] [address] PCP - General Internal Medicine 11/29/18 10/21/22 Abigail Jason MD [address] [place] [address] [email or web address] PCP - General Family Medicine 10/22/2204/11 Lexi Fisher MD [address] [place] [address] [email or web address] PCP - General Family Medicine 04/12/24 Checo Mario MD [address] [place], [place] [address] [place] [address] Neurology 11/29/18 Marc Mario MD [address] [place] [address] [address] [place] [address] Psychiatry 11/29/18 Francois Salazar MD [email or web address] Primary Oncologist Neurology 01/03/19 Randi Rich Psy.D. [address] [place] [address] Psychologist 11/30/18 documented as of this encounter Additional Source Comments The information contained in this document represents components of the legal health record. It is not the complete legal health record.[facility]
--- OUTSIDE RECORDS SUMMARY | 2025-10-04 17:57 | XMS_ITS | Encounter Summary ---
Author Organization [facility] Address [address] [place] [address] Phone Care Team Providers Care Chief Cook Name Role Phone Theresa Shah MD Primary Care Provi dmitry Carlitos Castro MD Primary Care Provider [phone] Checo Mario MD Unavailable Marc Mario MD Unavailable Francois Salazar MD Unavailable SAROJ [email or web address] Abigail Jason MD Primary Care Provider [phone] Lexi Fisher MD Primary Care Provider Encounter Details Date Type Department Care Team (Late st Contact Info) Description 12/21/2017 Transcribe Orders [facility] Specimen Processing [address] [place] [address] Theresa Shah MD [address] [place], [place] [id number] [email or web address] Dysuria (Primary Dx) Social History Tobacco Use Types [...] documented as of this encounter Results * Urine culture (12/21/2017 2:00 PM EST) Specimen Source/ Description URINE CLEAN CATCH URINE [facility] Special Requests None [facility] GRAM STAIN Rare GRAM POSITIVE RODS [facility] Culture/Test 10,000 to 100,000 colony forming units per ml MIXED ANNY (3 OR MORE COLONY TYPES) Culture indicates contamination . Please resubmit if necessary. [facility] Report Status 12/23/2017 FINAL [facility] Urine (Urine) 12/21/2017 2:0 0 PM EST 12/21/2017 6:01 PM EST us Theresa Shah MD LAB MICROBIOLOGY CU LTURE ORDERABLES Final Result Performing Organization Address [facility] Co de Phone Number [address] [address] * (ABNORMAL) Urinalysis (12/21/2017 2:00 PM EST) COLOR Yellow Yellow [facility] CLARITY Clear [facility] GLUCOSE Negative Negative [facility] BILI Negative Negative [facility] KETONES Negative Negative [facility] SPECIFIC GRAVITY 1.010 1.005 - 1.030 [facility] BLOOD Trace(A) Negative [facility] PH 6.0 5.0 - 8.0 [facility] Protein-UA Negative Negative [facility] NITRITE Negative Negative [facility] Leukocyte esterase, ur 2+(A) Negative [facility] Urine (Urine) 12/21/2017 2:0 0 PM EST 12/21/2017 6:02 PM EST us Theresa Shah MD LAB URINE ORDERABLE S Final Result Performing Organization Address [facility]/ZIP Co de Phone Number [address] [address] documented in this encounter Visit Diagnoses Diagnosis Dysuria- Primary documented in this encounter Care Teams Chief Cook Relationship Specialty Start Date End Date Theresa Shah MD [email or web address] PCP - General Internal Medicine 08/22/1711/28/18 Carlitos Castro MD [address] [place] [address] PCP - General Internal Medicine 11/29/18 10/21/22 Abigail Jason MD [place] [address] [email or web address] PCP - General Family Medicine 10/22/2204/11 Lexi Fisher MD [address] [place] [address] [email or web address] PCP - General Family Medicine 04/12/24 Checo Mario MD [address] [place] [address], [address] [place] [address] Neurology 11/29/18 Marc Mario MD [address] [place] [address] Psychiatry 11/29/18 Francois Salazar MD [email or web address] Primary Oncologist Neurology 01/03/19 Randi Rich Psy.D. [address] [place] [address], [facility] [address] [place], [place] [id number] Psychologist 11/30/18 documented as of this encounter Additional Source Comments The information contained in this document represents components of the legal health record. It is not the complete legal health record.[facility]
--- OUTSIDE RECORDS SUMMARY | 2025-10-04 17:57 | XMS_ITS | Encounter Summary ---
Author Organization [facility] Address [address] [place] [address] Phone Care Team Providers Care Dental Instrument Maker Name Role Phone Checo Mario MD Unavailable Marc Mario MD Unavailable [phone] Francois Salazar MD Unavailable [email or web address] Abigail Jason MD Primary Care Provider [phone] Lexi Fisher MD Primary Care Provider [phone] Reason for Referral * MRI/CAT Scan - Closed Specialty Diagnoses / Procedures Referred By Contac t Referred To Contact Radiology Diagnoses Endometrial cancer Procedures MRI Pelvis (OVERHAULER HELPER) MRI Pelvis (GI/) CHG MRI, PELVIS, COMBO Bianka Logan MD [address] [address] Phone: tel: fax: Referral ID Status Reason Start Date Expiration Date Visits Re quested Visits Authorized [id number] Closed 04/03/2024 06/03/2024 1 1 Encounter Details Date Type Department Care Team (Late st Contact Info) Description 04/11/2024 Ancillary Orders Virtual Department 30 [place] [address] Bianka Logan MD [facility] [address] [id number] Endometrial cancer (Primary Dx) Social History Tobacco [...] on file Not 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 Wish to be (Past 1 Month) No 024 3:26 PM EDT Karen Rivero, VITALY 2. Non-Specific Active Suici pernell Thoughts (Past 1 Month) No 04/11/2024 3:26 PM EDT Karen Rivero RN 6. Suicidal Behavior (Lifetime) No 4 3:26 PM EDT Karen Rivero RN documented as of this encounter Plan of Treatment Not on file documented as of this encounter Results * MRI PELVIS (GYNECOLOGICAL) WITH AND WITHOUT CONTRAST (04/11/2024 2:05 PM EDT) Anatomical Region Laterality Modality Pelvis Magnetic Resonan ce 04/15/2024 8:19 PM EDT Impressions 04/16/2024 5:50 PM EDT No abnormal endometrial thickening, focal endometrial lesion, or evidence of pelvic metastases. Myometrial masses measuring up to 3.7 cm consistent with intramural fibroids. Narrative 04/16/2024 5:50 PM EDT MRI PELVIS (GYNECOLOGICAL) WITH AND WITHOUT CONTRAST Referring clinician's provided indication for this examination in Epic: Outside Radiology Order; endometrial cancer TECHNIQUE: Multiplanar MR imaging of the pelvis was performed using T1, T2, and diffusion weighted techniques. Postcontrast multiphase imaging was also performed after administration of an intravenous gadolinium agent. COMPARISON: CT ABDOMEN/PELVIS WITH CONTRAST FINDINGS: Uterus: Measures 8.4 cm long axis, retroverted. . Circumscribed T2 hypointense uterine masses measuring up to 3.7 cm in the right lateral lower ureter body and 3.5 cm in the posterior fundus. A few lesions minimally abut the endometrium without significant distortion or intracavitary/apical component. Endometrium and junctional zone measure within normal limits for thickness. No visualized focal endometrial lesion. Adnexa: Normal-appearing bilateral ovaries. No extraovarian adnexal mass. Bladder: Normal. Rectum: Normal. Peritoneum: Trace free fluid. Lymph Nodes: No lymphadenopathy. Bones/Soft Tissues: No aggressive osseous lesion. Small sacral perineural cysts. Procedure Note Edgar Zamora MD - 04/16/2024 MRI PELVIS (GYNECOLOGICAL) WITH AND WITHOUT CONTRAST Referring clinician's provided indication for this examination in Epic:Outside Radiology Order; endometrial cancer TECHNIQUE: Multiplanar MR imaging of the pelvis was performed using T1,T2, and diffusion weighted techniques. Postcontrast multiphase imaging wasalso performed after administration of an intravenous gadolinium agent. COMPARISON: CT ABDOMEN/PELVIS WITH CONTRAST FINDINGS: Uterus: Measures 8.4 cm long axis, retroverted. . Circumscribed [id number] uterine masses measuring up to 3.7 cm in the right laterallower ureter body and 3.5 cm in the posterior fundus. A few lesionsminimally abut the endometrium without significant distortion orintracavitary/apical component. Endometrium and junctional zone measurewithin normal limits for thickness. No visualized focal endometriallesion. Adnexa: Normal-appearing bilateral ovaries. No extraovarian adnexalmass. Bladder: Normal. Rectum: Normal. Peritoneum: Trace free fluid. Lymph Nodes: No lymphadenopathy. Bones/Soft Tissues: No aggressive osseous lesion. Small sacral perineuralcysts. IMPRESSION: No abnormal endometrial thickening, focal endometrial lesion, or evidenceof pelvic metastases. Myometrial masses measuring up to 3.7 cm consistent with intramuralfibroids. us Bianka Logan MD IMG MR PELVIS Final Res ult documented in this encounter Visit Diagnoses Diagnosis Endometrial cancer Malignant neoplasm of corpus uteri, except isthmus Endometrial cancer- Primary Malignant neoplasm of corpus uteri, except isthmus documented in this encounter Care Teams Dental Instrument Maker Relationship Specialty Start Date End Date Abigail Jason MD [address] [place] [address] [email or web address] PCP - General Family Medicine 10/22/2204/11 Lexi Fisher MD [address] [place] [address] [email or web address] PCP - General Family Medicine 04/12/24 Checo Mario MD [address] [place] [address], [address] [place] [address] Neurology 11/29/18 Marc Mario MD [address] [place] [address] [address] [place] [address] Psychiatry 11/29/18 Francois Salazar MD [email or web address] Primary Oncologist Neurology 01/03/19 Randi Rich Psy.D. [address] [place] [address] [address] [place] [address] Psychologist 11/30/18 documented as of this encounter Additional Source Comments The information contained in this document represents components of the legal health record. It is not the complete legal health record.[facility]
--- OUTSIDE RECORDS SUMMARY | 2025-10-04 17:57 | XMS_ITS | Encounter Summary ---
Author Organization [facility] Address [address] [place] [address] Phone Care Team Providers Care Power Line Lineman Name Role Phone Theresa Shah MD Primary Care Provi dmitry Carlitos Castro MD Primary Care Provider [phone] Checo Mario MD Unavailable [phone] Marc Mario MD Unavailable Francois Salazar MD Unavailable SAROJ [email or web address] Abigail Jason MD Primary Care Provider [phone] Lexi Fisher MD Primary Care Provider Encounter Details Date Type Department Care Team (Late st Contact Info) Description 12/29/2017 Ancillary Orders Virtual Department [address] [place] [address] Theresa Shah MD [address] [place] [address] [email or web address] Pain in both knees, unspecified chronicity Social [...] as of this encounter Results * XR Knee Standing (Bilateral, Single View Only) (12/29/2017 2:53 PM EST) Anatomical Region Laterality Modality Knee Right, Knee Bilateral Radio graphic Imaging 12/29/2017 3:16 PM EST Impressions 12/29/2017 3:26 PM EST Minimal osteoarthritis in the right medial and lateral compartments. POS [id number] Edited by: Marlyn Lennon on 12/29/2017 3:22 PM Narrative 12/29/2017 3:26 PM EST Standing AP knees, single view. No comparison. No significant joint space narrowing. Negligible marginal spurring in the medial and lateral compartments of the right knee. No such changes on the left. Well-positioned patellae. No significant angulation across the knees. Procedure Note Cole Weaver MD - 12/29/2017 Standing AP knees, single view. No comparison. No significant joint space narrowing. Negligible marginal spurring in the medial and lateral compartments of theright knee. No such changes on the left. Well-positioned patellae. No significant angulation across the knees. IMPRESSION: Minimal osteoarthritis in the right medial and lateral compartments. POS [id number] Edited by: Marlyn Lennon on 12/29/2017 3:22 PM Theresa Shah MD IMG XR LOWER EXTREM ITY Final Result documented in this encounter Visit Diagnoses Diagnosis Pain in both knees, unspecified chronicity Pain in both knees, unspecified chronicity documented in this encounter Care Teams Power Line Lineman Relationship Specialty Start Date End Date Theresa Shah MD [email or web address] PCP - General Internal Medicine 08/22/1711/28/18 Carlitos Castro MD [address] [place] [address] PCP - General Internal Medicine 11/29/18 10/21/22 Abigail Jason MD [address] [place] [address] [email or web address] PCP - General Family Medicine 10/22/2204/11 Lexi Fisher MD [address] [place] [address] [email or web address] PCP - General Family Medicine 04/12/24 Checo Mario MD [address] [place] [address] [address] [place] [address] Neurology 11/29/18 Marc Mario MD [address] [place] [address] [address] [place] [address] Psychiatry 11/29/18 Francois Salazar MD [email or web address] Primary Oncologist Neurology 01/03/19 Randi Rich Psy.D. [address] [place] [address] [address] [place] [address] Psychologist 11/30/18 documented as of this encounter Additional Source Comments The information contained in this document represents components of the legal health record. It is not the complete legal health record.[facility]
--- OUTSIDE RECORDS SUMMARY | 2025-10-04 17:58 | XMS_ITS | Encounter Summary ---
Author Organization [facility] Address [address] [place] [address] Phone Care Team Providers Care Wiring Mechanic Name Role Phone Checo Mario MD Unavailable [phone] Marc Mario MD Unavailable [phone] Francois Salazar MD Unavailable [email or web address] [email or web address] Lexi Fisher MD Primary Care Provider [phone] Reason for Referral * MRI/CAT Scan - Closed Specialty Diagnoses / Procedures Referred By Contac t Referred To Contact Radiology Diagnoses History of endometrial cancer Procedures MRI Pelvis (HEALTHCARE CORPORATE ACCOUNT DIRECTOR) MRI Pelvis (GI/) Yaya Banegas MD [address] [place] [address] Phone: tel: fax: mailto:[email or web address] Referral ID Status Reason Start Date Expiration Date Visits Re quested Visits Authorized [id number] Closed 12/03/2024 12/03/2025 1 1 Encounter Details Date Type Department Care Team (Late st Contact Info) Description 01/02/2025 Ancillary Orders Virtual Department 30 [place] [address] Yaya Banegas MD [address] [place] [address] George 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 Narrative 01/04/2025 8:37 PM EDT MRI PELVIS (GYNECOLOGICAL) WITH AND WITHOUT CONTRAST Referring clinician's provided indication for this examination in Epic: Outside Radiology Order TECHNIQUE: Multiplanar MR imaging of the pelvis was performed using T1, T2, and diffusion weighted techniques. Postcontrast multiphase imaging was also performed after administration of an intravenous gadolinium agent. COMPARISON: MRI PELVIS (GYNECOLOGICAL) WITH AND WITHOUT CONTRAST FINDINGS: Uterus: Retroverted. Redemonstration of well-circumscribed T2 hypointense uterine masses measuring up to 3.7 cm in the RIGHT lateral lower ureter body and 3.4 cm in the posterior fundus, intramural. There are additional smaller lesions which minimally abut the endometrium without significant distortion or intracavitary/apical component. Endometrium and junctional zone measure within normal limits for thickness. No visualized focal endometrial lesion. Adnexa: Normal-appearing bilateral ovaries. No extraovarian adnexal mass. Bladder: Unremarkable. Rectum: Unremarkable. Peritoneum: No significant fluid. Lymph Nodes: No lymphadenopathy. Bones/Soft Tissues: No aggressive osseous lesion. Small sacral perineural cysts. Additional findings: Incompletely visualized T2 hyperintense lesions in the the liver, statistically most likely liver cysts although incompletely characterized. Bilateral extrarenal pelvises. Procedure Note Orlin Lipscomb MD, PhD - 01/04/2025 MRI PELVIS (GYNECOLOGICAL) WITH AND WITHOUT CONTRAST Referring clinician's provided indication for this examination in Epic:Outside Radiology Order TECHNIQUE: Multiplanar MR imaging of the pelvis was performed using T1,T2, and diffusion weighted techniques. Postcontrast multiphase imaging wasalso performed after administration of an intravenous gadolinium agent. COMPARISON: MRI PELVIS (GYNECOLOGICAL) WITH AND WITHOUT [id number] FINDINGS: Uterus: Retroverted. Redemonstration of well-circumscribed T2 hypointenseuterine masses measuring up to 3.7 cm in the RIGHT lateral lower ureterbody and 3.4 cm in the posterior fundus, intramural. There are additionalsmaller lesions which minimally abut the endometrium without significantdistortion or intracavitary/apical component. Endometrium and junctionalzone measure within normal limits for thickness. No visualized focalendometrial lesion. Adnexa: Normal-appearing bilateral ovaries. No extraovarian adnexalmass. Bladder: Unremarkable. Rectum: Unremarkable. Peritoneum: No significant fluid. Lymph Nodes: No lymphadenopathy. Bones/Soft Tissues: No aggressive osseous lesion. Small sacral perineuralcysts. Additional findings: Incompletely visualized T2 hyperintense lesions inthe the liver, statistically most likely liver cysts although incompletelycharacterized. Bilateral extrarenal pelvises. IMPRESSION: Redemonstration of multiple uterine fibroids measuring up to 3.7 cm,similar compared with April 11, 2024. Yaya Banegas MD IMG MR PELVIS Final Resu lt documented in this encounter Visit Diagnoses Diagnosis History of endometrial cancer- Primary documented in this encounter Care Teams Wiring Mechanic Relationship Specialty Start Date End Date Lexi Fisher MD [address] [place] [address] PCP - General Family Medicine 04/12/24 Checo Mario MD [address] [place] [address], [address] [place] [address] Neurology 11/29/18 Marc Mario MD [address] [place] [address], [address] [place] [address] Psychiatry 11/29/18 Francois Salazar MD [email or web address] Primary Oncologist Neurology 01/03/19 Randi Rich Psy.D. [address] [place] [address] [address] [place] [address] Psychologist 11/30/18 documented as of this encounter Additional Source Comments The information contained in this document represents components of the legal health record. It is not the complete legal health record.[facility]
--- OUTSIDE RECORDS SUMMARY | 2025-10-04 17:58 | XMS_ITS | Encounter Summary ---
Author Organization [facility] Address [address] [place] [address] Phone Care Team Providers Care Clinical Nurse Educator Name Role Phone Theresa Shah MD Primary Care Provi dmitry Carlitos Castro MD Primary Care Provider [phone] Checo Mario MD Unavailable Marc Mario MD Unavailable Francois Salazar MD Unavailable JROSHNI [email or web address] Abigail Jason MD Primary Care Provider [phone] Lexi Fisher MD Primary Care Provider [phone] Encounter Details Date Type Department Care Team (Late st Contact Info) Description 12/26/2017 Procedure Pass [facility], [address] [address] Social History Tobacco Use Types Packs/Day Years [...] on filedocumented in this encounter Care Teams Clinical Nurse Educator Relationship Specialty Start Date End Date Theresa Shah MD [email or web address] PCP - General Internal Medicine 08/22/1711/28/18 Carlitos Castro MD [address] [place] [address] PCP - General Internal Medicine 11/29/18 10/21/22 Abigail Jason MD [address] [place] [address] [email or web address] PCP - General Family Medicine 10/22/2204/11 Lexi Fisher MD [address] [place] [address] [email or web address] PCP - General Family Medicine 04/12/24 Checo Mario MD [address] [place] [address], [address] [place] [address] Neurology 11/29/18 Marc Mario MD [address] [place] [address] Psychiatry 11/29/18 Francois Salazar MD [email or web address] Primary Oncologist Neurology 01/03/19 Randi Rich Psy.D. [address] [place] [address] [address] [place] [address] Psychologist 11/30/18 documented as of this encounter Additional Source Comments The information contained in this document represents components of the legal health record. It is not the complete legal health record.[facility]
--- OUTSIDE RECORDS SUMMARY | 2025-10-04 17:58 | XMS_ITS | Encounter Summary ---
Author Organization [facility] Address [address] [place] [address] Care Team Providers Care Dye Reel Operator Name Role Phone Lexi Fisher MD Primary Care Provider [phone] Diane Coker Unavailable Unavailable Encounter Details Date Type Department Care Team (Late st Contact Info) Description 10/04/2025 Telephone [facility] [address] [place] [address] Kaya Ferguson RN Social History Tobacco Use Types Packs/Day Years [...] AM EST documented as of this encounter Miscellaneous Notes * Telephone Encounter - Kaya Ferguson RN - 10/04/2025 9:18 AM EST Per pt request I called [facility] to reinistate delivery on adult pull ups. Delivery will be Tue or Tuesday. Requested delivery to door. 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 Pt notified. documented in this encounter Plan of Treatment Upcoming Encounters Date Type Department Care Team (Late st Contact Info) Description 10/07/2025 2:00 PM EST Office Visit [facility] [address] [place] [address] Lexi Fisher MD [address] [place] [address] documented as of this encounter Visit Diagnoses Not on filedocumented in this encounter Additional Health Concerns Assessment Noted Time PHQ-9 Depression Total Score: 16 023 2:48 PM EDT documented as of this encounter Care Teams Dye Reel Operator Relationship Specialty Start Date End Date Lexi Fisher MD [address] [place] [address] PCP - General Family Medicine 10/13/22 Diane Coker Health Navigator Financial [facility] 03/09/23 documented as of this encounter
--- OUTSIDE RECORDS SUMMARY | 2025-10-04 17:58 | XMS_ITS | Encounter Summary ---
Author Organization [facility] Address [address] [facility] [address] 7t [place] [address] Care Team Providers Care Orthopedic Physical Therapist Name Role Phone Lexi Fisher MD Primary Care Provider [phone] Diane Coker Unavailable Unavailable Encounter Details Date Type Department Care Team (Late st Contact Info) Description 09/29/2025 Results Follow-Up [place] [facility] MED[facility] [address] [place] [address] Lexi Fisher MD [address] [place], [place] MR Lumbar Spine w/o Contrast Social History Tobacco Use Types Packs/Day Years [...] Description 10/07/2025 2:00 PM EST [facility] [address] [place] [address] Lexi Fisher MD [address] [place], [place] documented as of this encounter Visit Diagnoses Not on filedocumented in this encounter Additional Health Concerns Assessment Noted Time PHQ-9 Depression Total Score: 16 023 2:48 PM EDT documented as of this encounter Care Teams Orthopedic Physical Therapist Relationship Specialty Start Date End Date Lexi Fisher MD [address] [place] [address] PCP - General Family Medicine 10/13/22 Diane Coker Navigator Financial Counseling and Assistance Services 03/09/23 documented as of this encounter
--- OUTSIDE RECORDS SUMMARY | 2025-10-04 17:58 | XMS_ITS | Encounter Summary ---
Author Organization [facility] Address [address] [place] [address] Phone Care Team Providers Care Bow Rehairer Name Role Phone Theresa Shah MD Primary Care Provi dmitry Carlitos Castro MD Primary Care Provider [phone] Checo Mario MD Unavailable Marc Mario MD Unavailable Francois Salazar MD Unavailable [email or web address] [email or web address] Abigail Jason MD Primary Care Provider [phone] Lexi Fisher MD Primary Care Provider Encounter Details Date Type Department Care Team (Late st Contact Info) Description 01/16/2018 Procedure Pass [facility], [address] [address] Social History Tobacco Use Types Packs/Day Years Used Date Smoking Tobacco: Never Smokeless Tobacco: Never Alcohol Use Standard Drinks/Week [...] on filedocumented in this encounter Care Teams Bow Rehairer Relationship Specialty Start Date End Date Osiecki, Theresa Vivienne, MD [email or web address] PCP - General Internal Medicine 08/22/1711/28/18 Carlitos Castro MD [address] [place] [address] PCP - General Internal Medicine 11/29/18 10/21/22 Abigail Jason MD [address] [place] [address] [email or web address] PCP - General Family Medicine 10/22/2204/11 Lexi Fisher MD [address] [place] [address] [email or web address] PCP - General Family Medicine 04/12/24 Checo Mario MD [address] [place], [place] [id number] [place] [address] Neurology 11/29/18 Marc Mario MD [address] [place] [address] Psychiatry 11/29/18 Francois Salazar MD [email or web address] Primary Oncologist Neurology 01/03/19 Randi Rich Psy.D. [address] [place] [address] [address] [place] [address] Psychologist 11/30/18 documented as of this encounter Additional Source Comments The information contained in this document represents components of the legal health record. It is not the complete legal health record.[facility]
--- OUTSIDE RECORDS SUMMARY | 2025-10-04 17:58 | XMS_ITS | Encounter Summary ---
Author Organization [facility] Address [address] [facility] [address] [place] [address] Phone Care Team Providers Care Sheet Metal Duct Installer Helper Name Role Phone Theresa Shah MD Primary Care Provi dmitry Carlitos Castro MD Primary Care Provider [phone] Checo Mario MD Unavailable [phone] Marc Mario MD Unavailable Francois Salazar MD Unavailable [email or web address] [email or web address] Abigail Jason MD Primary Care Provider [phone] Lexi Fisher MD Primary Care Provider Encounter Details Date Type Department Care Team (Late st Contact Info) Description 01/20/2018 Procedure Pass [facility], Ct Scan - [address] [address] Social History Tobacco Use Types Packs/Day Years [...] on filedocumented in this encounter Care Teams Sheet Metal Duct Installer Helper Relationship Specialty Start Date End Date Theresa Shah MD [email or web address] PCP - General Internal Medicine 08/22/1711/28/18 Carlitos Castro MD [address] [place] [address] PCP - General Internal Medicine 11/29/18 10/21/22 Abigail Jason MD [address] [place] [address] [email or web address] PCP - General Family Medicine 10/22/2204/11 Lexi Fisher MD [address] [place] [address] [email or web address] PCP - General Family Medicine 04/12/24 Checo Mario MD [address] [place], [place] [address] [place] [address] Neurology 11/29/18 Marc Mario MD [address] [place] [address] Psychiatry 11/29/18 Francois Salazar MD [email or web address] Primary Oncologist Neurology 01/03/19 Randi Rich Psy.D. [address] [place] [address] [address] [place], [place] [address] Psychologist 11/30/18 documented as of this encounter Additional Source Comments The information contained in this document represents components of the legal health record. It is not the complete legal health record.[facility]
--- OUTSIDE RECORDS SUMMARY | 2025-10-04 17:58 | XMS_ITS | Encounter Summary ---
Author Organization [employer] [facility] [employer] Address [address] [facility] 7 [place] [address] Care Team Providers Care Rpg Programmer Analyst Name Role Phone Lexi Fisher MD Primary Care Provider Diane Coker Unavailable Unavailable Encounter Details Date Type Department Care Team (Late Contact Info) Description 08/21/2024 Orders Only [facility] [address] [place] [address] Lexi Fisher MD [address] [place] [address] Social History Tobacco Use Types Packs/Day Years [...] Description 10/07/2025 2:00 PM EST Office Visit [facility] MEDICAL [address] [place] [address] Lexi Fisher MD [address] [place] [address] documented as of this encounter Procedures Procedure Name Priority Date/Time Associated Diagnosis Comments MACROPROLACTIN Routine 08/20/2024 8:49 AM EDT documented in this encounter Results * Macroprolactin (08/20/2024 8:49 AM EDT) Blood Venous blood specimen / Unknown us Lexi Fisher MD LAB BLOOD ORDERABLES Final Res ult documented in this encounter Visit Diagnoses Not on filedocumented in this encounter Additional Health Concerns Assessment Noted Time PHQ-9 Depression Total Score: 16 023 2:48 PM EDT documented as of this encounter Care Teams Rpg Programmer Analyst Relationship Specialty Start Date End Date Lexi Fisher MD [address] [place] [address] PCP - General Family Medicine 10/13/22 Diane Coker Health Navigator Financial Counseling and Assistance Services 03/09/23 documented as of this encounter
--- OUTSIDE RECORDS SUMMARY | 2025-10-04 17:58 | XMS_ITS | Encounter Summary ---
Author Organization [employer] Address [address] [facility] 7t [place] [address] Care Team Providers Care Installation Tech Name Role Phone Lexi Fisher MD Primary Care Provider [phone] Diane Coker Unavailable Unavailable Encounter Details Date Type Department Care Team (Late Contact Info) Description 10/04/2025 Orders Only [facility] Information Management [address] [place] [address] Lexi Fisher MD [address] [place] [address] Social History Tobacco Use Types Packs/Day Years [...] Description 10/07/2025 2:00 PM EST Office Visit [facility] MEDICAL [address] [place] [address] Lexi Fisher MD 70 [place] [address] documented as of this encounter Procedures Procedure Name Priority Date/Time Associated Diagnosis Comments XR LUMBAR SPINE COMPLETE 4+ VW Routine 10/04/2025 XR SCOLIOSIS SURVEY Routine 10/04/2025 documented in this encounter Results * XR LUMBAR SPINE COMPLETE 4+ VW (10/04/2025) Anatomical Region Laterality Modality Radiographic Margarita ging us Lexi Fisher MD IMG XR PROCEDURES Final Result * XR Scoliosis survey (10/04/2025) Anatomical Region Laterality Modality Spine N/A Radiographic Margarita ging us Lexi Fisher MD IMG XR PROCEDURES Final Result documented in this encounter Visit Diagnoses Not on filedocumented in this encounter Additional Health Concerns Assessment Noted Time PHQ-9 Depression Total Score: 16 01/20/ 023 2:48 PM EDT documented as of this encounter Care Teams Installation Tech Relationship Specialty Start Date End Date Lexi Fisher MD [address] [place] [address] PCP - General Family Medicine 10/13/22 Diane Coker Navigator Financial Counseling and Assistance Services 03/09/23 documented as of this encounter
--- OUTSIDE RECORDS SUMMARY | 2025-10-04 17:58 | XMS_ITS | Encounter Summary ---
Author Organization [facility] Address [address] [facility] [address] [place] [address] Phone Care Team Providers Care Organ Tuner Electronic Name Role Phone Theresa Shah MD Primary Care Provi dmitry Carlitos Castro MD Primary Care Provider [phone] Checo Mario MD Unavailable [phone] Marc Mario MD Unavailable [phone] Francois Salazar MD Unavailable [email or web address] [email or web address] Abigail Jason MD Primary Care Provider [phone] Lexi Fisher MD Primary Care Provider Reason for Referral * MRI/CAT Scan - Closed Specialty Diagnoses / Procedures Referred By Contac t Referred To Contact Radiology Diagnoses Left facial numbness Intractable headache, unspecified chronicity pattern, unspecified headache type Procedures MRI Brain Hortencia Salas NP [address] [facility] [address] [place] [address] Phone: tel: fax: [email or web address], [email or web address] [facility] Referral ID Status Reason Start Date Expiration Date Visits Re quested Visits Authorized [id number] Closed 01/16/2018 01/16/2019 1 1 Encounter Details Date Type Department Care Team (Late st Contact Info) Description 01/16/2018 Ancillary Orders Virtual Department [address] [place] [address] Hortencia Salas, RUDY [address] [place] [address] [address] [place] [address] [email or web address] Left facial numbness; Intractable headache, unspecified chronicity pattern, unspecified headache type Social History Tobacco Use Types Packs/Day [...] * MRI BRAIN WITH AND WITHOUT CONTRAST (01/26/2018 10:33 AM EDT) Anatomical Region Laterality Modality Head Magnetic Resonan ce 01/26/2018 10:4 8 AM EDT Impressions 01/26/2018 11:53 AM EDT Likely age-related White matter lesions. These findings are well within the expected amount for the patient's age. No significant abnormalities. [id number] Narrative 01/26/2018 11:53 AM EDT HISTORY: Left facial numbness. TECHNIQUE: Sagittal T1, FLAIR, axial T1, T2, FLAIR, gradient echo, diffusion images of the brain obtained. Postcontrast axial and sagittal T1-weighted images added. COMPARISON: 01/07/2017 brain MRI FINDINGS: The ventricles, sulci and extra-axial CSF spaces are within normal limits. There is no significant white matter disease. The few scattered foci of FLAIR and T2 hyperintensity in the subcortical and periventricular white matter that were described previously have not significantly changed. There are no enhancing lesions. There is no acute infarct. Procedure Note Luis Lara MD - 01/26/2018 HISTORY: Left facial numbness. TECHNIQUE: Sagittal T1, FLAIR, axial T1, T2, FLAIR, gradient echo,diffusion images of the brain obtained. Postcontrast axial and sagittalT1-weighted images added. COMPARISON: 01/07/2017 brain MRI FINDINGS: The ventricles, sulci and extra-axial CSF spaces are within normal limits.There is no significant white matter disease. The few scattered foci ofFLAIR and T2 hyperintensity in the subcortical and periventricular whitematter that were described previously have not significantly changed.There are no enhancing lesions. There is no acute infarct. IMPRESSION: Likely age-related White matter lesions. These findings are well withinthe expected amount for the patient's age. No significant abnormalities. [id number] Hortencia Salas CLINICAL SERVICES CONSULTANT IMG MR HEAD/NECK Final R esult documented in this encounter Visit Diagnoses Diagnosis Left facial numbness Disturbance of skin sensation Intractable headache, unspecified chronicity pattern, unspecified headache type Left facial numbness Disturbance of skin sensation Intractable headache, unspecified chronicity pattern, unspecified headache type documented in this encounter Care Teams Organ Tuner Electronic Relationship Specialty Start Date End Date Theresa Shah MD [email or web address] PCP - General Internal Medicine 08/22/1711/28/18 Carlitos Castro MD [address] [place] [address] PCP - General Internal Medicine 11/29/18 10/21/22 Abigail Jason MD [address] [place] [address] [email or web address] PCP - General Family Medicine 10/22/2204/11 Lexi Fisher MD [address] [place] [address] [email or web address] PCP - General Family Medicine 04/12/24 Checo Mario MD [address] [place] [address], [address] [place] [address] Neurology 11/29/18 Marc Mario MD [address] [place] [address], [address] [place] [address] Psychiatry 11/29/18 Francois Salazar MD [email or web address] Primary Oncologist Neurology 01/03/19 Randi Rich Psy.D. [address] [place] [address], [address] [place] [address] Psychologist 11/30/18 documented as of this encounter Additional Source Comments The information contained in this document represents components of the legal health record. It is not the complete legal health record.[facility]
--- OUTSIDE RECORDS SUMMARY | 2025-10-04 17:58 | XMS_ITS | Encounter Summary ---
Author Organization [facility] Address [address] [place] [address] Phone Care Team Providers Care Airport Guide Name Role Phone Checo Mario MD Unavailable [phone] Marc Mario MD Unavailable [phone] Francois Salazar MD Unavailable [email or web address] Lexi Fisher MD Primary Care Provider [phone] Encounter Details Date Type Department Care Team (Late st Contact Info) Description 12/03/2024 Procedure Pass [facility], [address] [address] Social History Tobacco Use Types Packs/Day Years [...] on file 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 Not on file Not on file documented as of this encounter Plan of Treatment Not on file documented as of this encounter Visit Diagnoses Not on filedocumented in this encounter Care Teams Airport Guide Relationship Specialty Start Date End Date Lexi Fisher MD [address] [place] [address] PCP - General Family Medicine 04/12/24 Checo Mario MD [address] [place] [address], [address] [place] [address] [email or web address] Neurology 11/29/18 Marc Mario MD [address] [place] [address] [address] [place] [address] Psychiatry 11/29/18 Francois Salazar MD [email or web address] Primary Oncologist Neurology 01/03/19 Randi Rich Psy.D. [address] [place] [address] [address] [place] [address] Psychologist 11/30/18 documented as of this encounter Additional Source Comments The information contained in this document represents components of the legal health record. It is not the complete legal health record.[facility]
--- OUTSIDE RECORDS SUMMARY | 2025-10-04 17:58 | XMS_ITS | Clinical Summary ---
Author Organization [employer] Address [address] [facility] [address] [place] [address] Care Team Providers Care Assistant Commissioner Name Role Phone Lexi Fisher MD Primary Care Provider [phone] Diane Coker Unavailable Unavailable Allergies Active Allergy Reactions Criticality Noted Date Comments Molds & Smuts 10/20/2022 Medications cholecalciferol (Vitamin D-3) 25 MCG (1000 UT) tablet 1 tablet in the morning. Active megestrol (Megace) 40 MG tablet 1 tablet in the morning. Active fluticasone (Flonase) 50 MCG/ACT nasal spray Administer 2 sprays into each nostril in the morning. 023 Active Levonorgestrel 20 MCG/DAY intrauterine device 52 mg by Intrauterine route. 021 Active loratadine (Claritin) 10 MG tablet Take 10 mg by mouth 1 (one) time each day. 023 Active ondansetron (Zofran) 4 MG tabletIndication s:Nausea Take 1 tablet (4 mg) by mouth if needed in the morning and at bedtime for vomiting or nausea for up to 180 doses. 60 tablet 2 023 Active ergocalciferol (Vitamin D2) 1.25 MG (62101 UT) capsuleIndicatio ns:Vitamin D deficiency,Age-r elated osteoporosis with current pathological fracture with routine healing, subsequent encounter TAKE 1 CAPSULE BY MOUTH ONE TIME PER WEEK 12 capsule 3 023 Active dicyclomine (Bentyl) 10 MG capsuleIndicatio ns:Abdominal cramps TAKE 1 CAPSULE BY MOUTH EVERY MORNING, AT NOON, IN THE EVENING AND AT BEDTIME FOR ABDOMINAL PAIN OR CRAMPS 30 capsule 11 023 Active budesonide-formo terol (Symbicort) 80-4.5 MCG/ACT inhalerIndicatio ns:Subcutaneous emphysema resulting from a procedure, initial encounter Inhale 2 puffs with breakfast. Rinse mouth with water after use to reduce aftertaste and incidence of candidiasis. Do not swallow. 10.2 g 11 024 Active albuterol 108 (90 Base) MCG/ACT inhalerIndicatio ns:Mild intermittent reactive airway disease without complication Inhale 1 puff every 4 (four) hours if needed for shortness of breath. 18 g 3 025 Active alendronate (Fosamax) 70 MG tabletIndication s:Age-related osteoporosis with current pathological fracture with routine healing, subsequent encounter Take 1 tablet (70 mg) by mouth every 7 (seven) days. Take in the morning with a full glass of water, on an empty stomach, and do not take anything else by mouth or lie down for the next 30 min. 4 tablet 025 2025 Active gabapentin (Neurontin) 100 MG capsuleIndicatio ns:Neurofibromat osis, type 1 (CMS/HCC) (HCC) Take 2 capsules (200 mg) by mouth 3 times daily. 180 capsule 025 2025 Active DULoxetine (Cymbalta) [address] capsuleIndicatio ns:Chronic pain syndrome Take 1 capsule (20 mg) by mouth 2 times daily. Do not crush or chew. 60 capsule 5 025 2025 Active acetaminophen (Tylenol) 325 MG tablet TAKE 1 TABLET BY MOUTH EVERY MORNING, NOON AND EVERY NIGHT AT BEDTIME NEEDED FOR PAIN OR FEVER 90 tablet 11 025 Active Calcium Antacid Extra Strength 750 MG chewable tabletIndication s:Heartburn CHEW 1 TABLET BY MOUTH IF NEEDED IN THE MORNING, AT NOON AND AT BEDTIME FOR HEARTBURN 90 tablet 025 Active polyethylene glycol, PEG, 3350 (Glycolax) 17 GM/SCOOP powder MIX AND DRINK 17 GRAMS IN A FULL GLASS OF WATER TWICE DAILY 510 g 11 025 Active Diclofenac Sodium 1 % gelIndications:C hronic pain syndrome Apply 2 g topically if needed in the morning and at bedtime (pain). 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 56 tablet 1 Active methylphenidate (Ritalin) 20 MG tabletIndication s:Attention deficit hyperactivity disorder (ADHD), unspecified ADHD type Take 1 tablet (20 mg) by mouth 2 times daily. Do not start before October 01, 2025. 56 tablet 025 2025 Active oxyCODONE-acetam inophen (Percocet) 10-325 MG tabletIndication s:Neurofibromato sis, type 1 (CMS/HCC) (HCC) Take 1 tablet by mouth every 4 (four) hours if needed for severe pain for up to 28 days. Max weekly is 40 tabs Do not start before October 01, 2025. 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 56 tablet 1 025 2024 Discontinued(R eorder (will not trigger notification to Pharmacy)) oxyCODONE-acetam inophen (Percocet) 10-325 MG tabletIndication s:Neurofibromato sis, type 1 (CMS/HCC) (HCC) Take 1 tablet by mouth every 4 (four) hours if needed for severe pain for up to 28 days. Max weekly is 40 tabs 160 tablet 025 2024 Discontinued(R eorder (will not trigger notification to Pharmacy)) methylphenidate (Ritalin) 20 MG tabletIndication s:Attention deficit hyperactivity disorder (ADHD), unspecified ADHD type Take 1 tablet (20 mg) by mouth 2 times daily for 28 days. 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 Loves her new apartment. There is carpet and was worried that similar concerns would reoccurr, but she is really happy with her new place. Feels it is clean and she is very happy. Reactive airway disease 11/11/2022 Severe episode of recurrent major depressive disorder, with psychotic features ([facility]) 11/11/2022 Assessment & Plan (12/28/2022 2:23 PM EST): A little bit of regression, but no psychotic features. Really needs to get out a bit more. She made a new friend and is going to coffee hour. Talked about going to the [employer] and using the warm pool or doing chair yoga. She said she would look into this. Assessment & Plan (11/11/2022 12:30 PM EST): Seems to be doing really. Sleeping well. Did a PHQ9 with her PCP and she scored low. She still perseverates on all that happened to her at [facility]. She is drinking tap water!! Very stable. Needs to continue her current MH regimen. Closed fracture of lower end of left radius with routine healing 11/11/2022 Assessment & Plan (11/11/2022 12:36 PM EST): FOSH on ice xmas rose. Needed to have fracture set. Cast being removed on 11/24. PCP ordering dexa. Neurogenic bladder 11/11/2022 Assessment & Plan (11/11/2022 12:37 PM EST): Ordered depends for patient. 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 09/29/2025 Results Follow-Up [address] [address] Lexi Fisher MD MR Lumbar Spine w/o Contrast 09/27/[address] [address] Kaya Ferguson, VITALY Attention deficit hyperactivity disorder (ADHD), unspecified ADHD type; Neurofibromatosis, type 1 (CMS/HCC) (HCC) 09/06/[address] [address] Kaya Ferguson, VITALY 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 09/04/2025 12:00 PM EST Home Visit [address] [address] Kaya Ferguson RN Foraminal stenosis of cervical region; rn long term care current use of antipsychotic medication; Anxiety about health 09/02/2025 1:00 PM EST Office Visit [address] [address] Lexi Fisher MD Foraminal stenosis of cervical region (Primary Dx); rn long term care current use of antipsychotic medication; Iatrogenic cushingoid features (CMS/HCC); Memory changes; Bilateral leg weakness; 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; Neurofibromatosis, type 1 (CMS/HCC) (HCC); Attention deficit hyperactivity disorder (ADHD), unspecified ADHD type 08/23/[address] [address] Kaya Ferguson RN Chronic pain syndrome 08/21/2025 12:00 PM EDT Home Visit [address] [address] Kaya Ferguson RN Chronic pain syndrome; Neurofibromatosis, type 1 (CMS/HCC) (HCC) 08/07/2025 12:00 PM EDT Home Visit [address] [address] Kaya Ferguson RN Neurofibromatosis, type 1 (CMS/HCC) (HCC); Chronic pain syndrome; Anxiety about health 08/06/2025 Refill [facility] MED[facility] [address] [place] [address] Lexi Fisher MD 08/05/[address] [address] Kaya Ferguson RN Attention deficit hyperactivity disorder (ADHD), unspecified ADHD type; Neurofibromatosis, type 1 (CMS/HCC) (HCC) 07/17/2025 Results Follow-Up [address] [address] Lexi Fisher MD MR Cervical Spine w/o Contrast 07/10/2025 12:00 PM EDT Home Visit [address] [address] Kaya Ferguson, VITALY Neurofibromatosis, type 1 ([facility]/HCC); Chronic pain syndrome; Grief 07/09/[address] [address] Kaya Ferguson, VITALY 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; Attention deficit hyperactivity disorder (ADHD), unspecified ADHD type; Neurofibromatosis, type 1 ([facility]/HCC) from Last 3 Months Immunizations Immunization Administration Dates Next Due Influenza Whole 07/04/2019 Influenza, IIV3, injectable 06/11/2022,0 06/20/2021,06/23/2020,2018,07/01/2018,06/23/2018,07/19/2017,0 05/30/2017,07/05/2014,02/03/2010, 009,11/14/2008 Constance SARS-CoV-2 Vaccination 01/28/2021 Pfizer Covid-19 Vaccine 12+ Bivalent 10/07/2022 Pfizer Covid-19 Vaccine 12+ frank-sucrose (Haji Cap) 05/11/2022 Pneumococcal Conjugate PCV 20 04/02/2023 Tdap 06/14/2015 Zoster, Recombinant 06/20/2021 Family History Relation Name Status Comments Father Alive Social History Tobacco Use Types Packs/Day Years Used Date Smoking Tobacco: Former Cigarettes Tobacco Cessation:Counseling Given: Not Answered Depression Answer Date Recorded Patient Health Questionnaire-9 Score 16 01/20/2023 Depression Answer Date Recorded Patient Health Questionnaire-2 Score 4 01/20/2023 Comments Unknown Sex and Gender Information Value Date Recorded Sex Assigned at Female 11/10/2022 1:55 PM EST Legal Sex Female 8:40 PM EDT Gender Identity Female 11/10/2022 1:55 PM EST Sexual Orientation Choose not to disclose 2022 8:57 AM EST Last Filed Vital Signs Vital Sign Reading Time Taken Comments Blood Pressure 153/78 09/02/2025 12:49 PM EST Pulse 79 09/02/2025 12:49 PM EST Temperature 36.6 C (97.9 F) 08/22/2023 9:03 AM EDT Respiratory Rate 20 09/02/2025 12:4 9 PM EST Oxygen Saturation 96% 06/13/2024 12: 28 PM EDT Inhaled Oxygen Concentration - - Weight 81.6 kg (179 lb 12.8 oz) 025 12:49 PM EST Height 167.6 cm (5' 6 ) 08/22/2023 9:03 AM EDT Body Mass Index 29.02 08/22/2023 9:03 AM EDT Plan of Treatment Upcoming Encounters Date Type Department Care Team (Late st Contact Info) Description 10/07/2025 2:00 PM EST Office Visit [facility] MED[facility] [address] [place] [address] Lexi Fisher MD [address] [place] [address] Health Maintenance Due Date Last Done Comments CT Colonography 1957 Colonoscopy 1957 Colorectal Cancer Screening 1957 FIT DNA/Cologuard 1957 FIT 1957 FOBT 1957 SDOH Screening 1957 Sigmoidoscopy 1957 Alcohol/Substance Use Screening 1969 Hepatitis C Screening 1975 Mammogram 1997 RSV Patients and Patients Aged 60 years or older (1 - Risk 50-74 years 1-dose series) 2007 Depression Monitoring 07/23/2023 01/20/2023, 023 DTaP/Tdap/Td Vaccines (2 - Td or Tdap) 06/14/2025 06/14/2015 COVID-19 Vaccine ( season) 2025 10/07/2022, 05/11/2022, 01/28/2021 Influenza Vaccine (#1) 2025 2, 06/20/2021, 06/23/2020, Additional history exists Tobacco Screening 07/23/2025 07/23/2024 Zoster Vaccines Completed 01/12/2023, 06/20/2021 Pneumococcal Vaccine: 50+ Years Completed 04/02/2023 HIB Vaccines Aged Out No longer eligi ble based on patient's age to complete this topic HPV Vaccines Aged Out No longer eligi ble based on patient's age to complete this topic Hepatitis A Vaccines Aged Out No long er eligible based on patient's age to complete this topic Hepatitis B Vaccines Aged Out No long er eligible based on patient's age to complete this topic IPV Vaccines Aged Out No longer eligi ble based on patient's age to complete this topic Meningococcal B Vaccine Aged Out No l onger eligible based on patient's age to complete this topic Meningococcal Vaccine Aged Out No priyank jesi eligible based on patient's age to complete this topic RSV under 20 months Aged Out No longe r eligible based on patient's age to complete this topic Rotavirus Vaccines Aged Out No longer eligible based on patient's age to complete this topic Procedures Procedure Name Priority Date/Time Associated Diagnosis Comments AMB REFERRAL TO NEUROSURGERY Routine 10/04/2025 Foraminal stenosis of cervical region XR LUMBAR SPINE COMPLETE 4+ VW Routine 10/04/2025 XR SCOLIOSIS SURVEY Routine 10/04/2025 MR LUMBAR SPINE WO CONTRAST Routine 09/25/2025 Bilateral leg weakness from Last 3 Months Results * XR LUMBAR SPINE COMPLETE 4+ VW (10/04/2025) Anatomical Region Laterality Modality Radiographic Margarita ging us Lexi Fisher MD IMG XR PROCEDURES Final Result * XR Scoliosis survey (10/04/2025) Anatomical Region Laterality Modality Spine N/A Radiographic Margarita ging us Lexi Fisher MD IMG XR PROCEDURES Final Result * Referral to Neurosurgery (10/04/2025) us Lexi Fisher MD OUTPATIENT REFERRAL ORDERABLES Final Result * MR Lumbar Spine w/o Contrast (09/25/2025) Anatomical Region Laterality Modality Spine, L-spine Magnetic Resonan ce Lexi Fisher MD IMG MRI PROCEDURES Final Resul t from Last 3 Months Insurance [facility] [employer] (HMO D-SNP) [facility] STANDARD Advance Directives Documents on File Type Date Recorded Patient Tinsmith Apprentice Expl anation MOLST form 06/27/2024 5:22 PM MOLST Care Teams Assistant Commissioner Relationship Specialty Start Date End Date Lexi Fisher MD [address] [place] [id number] PCP - General Family Medicine 10/13/22 Diane Coker Navigator Financial Counseling and Assistance Services 03/09/23
--- OUTSIDE RECORDS SUMMARY | 2025-10-04 17:58 | XMS_ITS | Encounter Summary ---
Author Organization [facility] Address [address] [place] [address] Phone Care Team Providers Care Heavy Equipment Rental Manager Name Role Phone Theresa Shah MD Primary Care Provi [email or web address] Carlitos Castro MD Primary Care Provider [phone] Checo Mario MD Unavailable Marc Mario MD Unavailable Francois Salazar MD Unavailable [email or web address] [email or web address] Abigail Jason MD Primary Care Provider [phone] Lexi Fisher MD Primary Care Provider Encounter Details Date Type Department Care Team (Latest Contact Info) Description 01/20/2018 Transcribe Orders [facility] Phleb Bea [address]nd [place] [address] Karen Kuo PA-C [address], [address] [place] [address] [email or web address] Constipation, unspecified constipation type (Primary Dx); Gastro-esophageal reflux disease with esophagitis Social History Tobacco Use Types Packs/Day Years [...] documented as of this encounter Results * TSH (01/20/2018 11:31 AM EDT) TSH 0.70 0.27 - 4.20 uIU/mL [facility] Blood 01/20/2018 11:3 1 AM EDT 01/20/2018 11:38 AM EDT us Karen Kuo PA-C LAB BLOOD BKR ORDERABLES Final Result Performing Organization Address City/[facility]/ZIP Co de Phone Number [address] [address] * (ABNORMAL) C-Reactive Protein (01/20/2018 11:31 AM EDT) Pathologist [facility] C REACTIVE PROTEIN <0.0(L) 0 - 0.5 mg/L [facility] Blood 01/20/2018 11:3 1 AM EDT 01/20/2018 11:38 AM EDT us Karen Kuo PA-C LAB BLOOD BKR ORDERABLES Final Result Performing Organization Address City/[facility]/ZIP Co de Phone Number [address] [address] * Comprehensive metabolic panel (01/20/2018 11:31 AM EDT) SODIUM 139 133 - 146 mmol/L [facility] POTASSIUM 4.5 3.3 - 5.1 mmol/L [facility] CHLORIDE 98 96 - 108 mmol/L [facility] CO2 27 21 - 35 mmol/L [facility] BUN 16 6 - 19 mg/dL [facility] CREATININE 0.80 0.5 - 1.5 mg/dL [facility] GLUCOSE 87 70 - 99 mg/dL [facility] ALBUMIN 4.6 3.9 - 4.8 g/dL [facility] TOTAL PROTEIN 7.6 6.5 - 8.0 g/dL [facility] CALCIUM 9.5 8.4 - 10.3 mg/dL [facility] ALKALINE PHOSPHATASE 78 39 - 117 U/L [facility] TOTAL BILIRUBIN 0.5 0.0 - 1.2 mg/dL [facility] AST 17 0 - 37 U/L [facility] ALT 7 0 - 40 U/L [facility] GLOBULIN 3.0 1 - 4.8 g/dL [facility] EGFR 80 >59 mL/min/1.7 3m2 [facility] Comment:If patient is black, multiply result by 1.159. The eGFR calculation has changed from the MDRD equation to the CKD-EPI equation as of December 27, 2017. ANION GAP 19 10 - 20 mmol/L [facility] Blood 01/20/2018 11:3 1 AM EDT 01/20/2018 11:38 AM EDT us Karen Kuo PA-C LAB BLOOD BKR ORDERABLES Final Result Performing Organization Address City/State/[facility] Co de Phone Number [address] [address] * CBC (01/20/2018 11:31 AM EDT) WBC 4.28 3.40 - 11.20 K/uL [facility] RBC 4.80 3.80 - 4.80 M/uL [facility] HGB 15.0 12.0 - 15.0 g/dL [facility] HCT 44.9 36.0 - 46.0 % [facility] PLT 314 130 - 400 K/uL [facility] MCV 93.5 79.0 - 98.0 fL [facility] MCH 31.3 27.0 - 34.8 pg [facility] MCHC 33.4 31.5 - 36.0 g/dL [facility] RDW 12.6 10.8 - 14.6 % [facility] MPV 9.8 9.4 - 12.4 fl [facility] NRBC 0.00 /100 WBCs [facility] ABSOLUTE NRBC 0.00 K/uL [facility] Blood 01/20/2018 11:3 1 AM EDT 01/20/2018 11:38 AM EDT us Karen Kuo PA-C LAB BLOOD BKR ORDERABLES Final Result Performing Organization Address City/[facility]/ZIP Co de Phone Number [address] [address] * Tissue transglutaminase IgA (01/20/2018 11:31 AM EDT) TTG IGA ANTIBODY <1.2 <4.0 (Negative) U/mL [facility] DPT OF LAB MED AND PAT+ Blood 01/20/2018 11:3 1 AM EDT 01/20/2018 11:37 AM EDT us Karen Kuo PA-C LAB BLOOD BKR ORDERABLES Final Result [facility] DPT OF LAB MED AND PAT+ [address] [place] [address] * Immunoglobulin A (01/20/2018 11:31 AM EDT) IgA 186 70 - 400 mg/dL [facility] Blood 01/20/2018 11:3 1 AM EDT 01/20/2018 11:38 AM EDT us Karen Kuo PA-C LAB BLOOD BKR ORDERABLES Final Result Performing Organization Address City/[facility]/ZIP Co de Phone Number [address] [address] documented in this encounter Visit Diagnoses Diagnosis Constipation, unspecified constipation type- Primary Gastro-esophageal reflux disease with esophagitis Reflux esophagitis documented in this encounter Care Teams Heavy Equipment Rental Manager Relationship Specialty Start Date End Date Theresa Shah MD [email or web address] PCP - General Internal Medicine 08/22/1711/28/18 Carlitos Castro MD [address] [place] [id number] PCP - General Internal Medicine 11/29/18 10/21/22 Abigail Jason MD [address] [place] [address] [email or web address] PCP - General Family Medicine 10/22/2204/11 Lexi Fisher MD [address] [place] [id number] [email or web address] PCP - General Family Medicine 04/12/24 Checo Mario MD [address] [place], [place] [id number] [place] [address] Neurology 11/29/18 Marc Mario MD [address] [place] [address] [address] [place] [address] Psychiatry 11/29/18 Francois Salazar MD [email or web address] Primary Oncologist Neurology 01/03/19 Randi Rich Psy.D. [address] [place] [id number] Psychologist 11/30/18 documented as of this encounter Additional Source Comments The information contained in this document represents components of the legal health record. It is not the complete legal health record.[facility]
--- OUTSIDE RECORDS SUMMARY | 2025-10-04 17:58 | XMS_ITS | Encounter Summary ---
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 Social History Tobacco Use Types Packs/Day Years [...] encounter Miscellaneous Notes * Telephone Encounter - Marianela Wiley - 10/02/2025 1:27 PM EST Med queued for provider to send documented in this encounter Plan of Treatment Upcoming Encounters Date Type Department Care Team (Late st Contact Info) Description 10/07/2025 2:00 PM EST Office Visit [facility] MEDICAL [address] [place] [address] Lexi Fisher MD [address] [place] [address] documented as of this encounter Visit Diagnoses Diagnosis 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
--- OUTSIDE RECORDS SUMMARY | 2025-10-04 17:58 | XMS_ITS | Encounter Summary ---
Author Organization [facility] Address [address] [place] [address] Phone Care Team Providers Care Engineering Technician Name Role Phone Theresa Shah MD Primary Care Provi dmitry Carlitos Castro MD Primary Care Provider [phone] Checo Mario MD Unavailable [phone] Marc Mario MD Unavailable [phone] Francois Salazar MD Unavailable [email or web address] Abigail Jason MD Primary Care Provider [phone] Lexi Fisher MD Primary Care Provider Reason for Referral * MRI/CAT Scan - Closed Specialty Diagnoses / Procedures Referred By Contlaure t Referred To Contact Radiology Diagnoses Other constipation Bloating Procedures CT Abdomen/Pelvis Karen Kuo PA-C Phone: tel: fax: [email or web address] Referral ID Status Reason Start Date Expiration Date Visits Re quested Visits Authorized [id number] Closed 01/20/2018 01/20/2019 1 1 Encounter Details Date Type Department Care Team (Late st Contact Info) Description 01/20/2018 Ancillary Orders Virtual Department [address] [place] [address] Karen Kuo PA-C [address] [place] [address] [email or web address] Other constipation; Bloating Social History Tobacco Use Types Packs/Day Years [...] encounter Results * CT ABDOMEN/PELVIS WITH CONTRAST (01/30/2018 1:53 PM EDT) Anatomical Region Laterality Modality Abdomen, Pelvis Computed Tomogra phy 01/30/2018 2:50 PM EDT Impressions 01/30/2018 6:39 PM EDT Excessive stool volume and fecalized material of distal ileum from hypomotility. Multi fibroid uterus again noted. Numerous hepatic cysts. TOTAL CTDIvol: 5.50 mGy POS - [id number] Edited by: Marie Mclean on 01/30/2018 3:12 PM Narrative 01/30/2018 6:39 PM EDT COMPARISON: None TECHNIQUE: CT of the abdomen and pelvis with IV and oral contrast. Multiplanar reformatted images generated. Automated exposure control utilized. FINDINGS: CT ABDOMEN: Lower thorax: No infiltrate in the basal lungs. Multiple small blebs in the basal lungs. No pleural or pericardial effusions. Liver: Numerous scattered cysts. The largest measures 3.5 cm in the left hepatic dome and has a thin septation. Few additional thinly septated cysts. Other lesions are too small to characterize but may represent additional smaller cysts. Gallbladder/biliary tree: No calcified gallstones or pericholecystic inflammatory change. No biliary ductal dilatation Spleen: No abnormality detected. Pancreas: No abnormality detected. Adrenal glands: Chronic nodularity of the intrarenal glands as on prior spine MRIs. Kidneys/ureters: No hydronephrosis. No definite lesions. Left kidney is mildly atrophic measuring 8.1 cm in craniocaudad extent. Cortical thinning in the left lower pole. Vasculature: No abdominal aortic aneurysm. Left common hepatic artery has a separate origin from the aorta adjacent to the celiac artery. Probable replaced right hepatic artery arising from the SMA. Hepatic veins and portal vein are patent. Peritoneum: No evidence of free intraperitoneal air, free fluid, or organized collections. Lymph nodes: No lymphadenopathy detected. Stomach/duodenum: Small hiatal hernia. Body wall: Small area of nonspecific focal skin thickening just left of midline in the lower abdomen and probable sebaceous cyst anteriorly in the right lower quadrant. CT PELVIS: Bladder: Bladder wall thickening is probably largely related to underdistention. Reproductive: Uterus is enlarged and contains multiple hypodense masses from uterine fibroids as seen on prior ultrasound exam from 2015. No adnexal abnormality. Bowel: Excessive stool volume throughout the colon. Also fecalized appearance of the terminal ileum likely from hypomotility. No bowel obstruction. Appendix is normal. No inflammatory changes. Peritoneum: No free fluid or organized collections. Lymph nodes: No iliac chain or inguinal lymphadenopathy. 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 No compression deformities. Osteopenia. Severe facet arthropathy at the lower two lumbar levels. Grade 1 anterolisthesis of L3 on 4 secondary to severe facet arthropathy. Mild degenerative changes in the hips greater on the right. No destructive bone lesion. Procedure Note Marcus Asencio MD - 01/30/2018 COMPARISON: None TECHNIQUE: CT of the abdomen and pelvis with IV and oral contrast.Multiplanar reformatted images generated. Automated exposure controlutilized. FINDINGS: CT ABDOMEN: Lower thorax: No infiltrate in the basal lungs. Multiple small blebs inthe basal lungs. No pleural or pericardial effusions. Liver: Numerous scattered cysts. The largest measures 3.5 cm in the lefthepatic dome and has a thin septation. Few additional thinly septatedcysts. Other lesions are too small to characterize but may representadditional smaller cysts. Gallbladder/biliary tree: No calcified gallstones or pericholecysticinflammatory change. No biliary ductal dilatation Spleen: No abnormality detected. Pancreas: No abnormality detected. Adrenal glands: Chronic nodularity of the intrarenal glands as on priorspine MRIs. Kidneys/ureters: No hydronephrosis. No definite lesions. Left kidney ismildly atrophic measuring 8.1 cm in craniocaudad extent. Corticalthinning in the left lower pole. Vasculature: No abdominal aortic aneurysm. Left common hepatic artery hasa separate origin from the aorta adjacent to the celiac artery. Probablereplaced right hepatic artery arising from the SMA. Hepatic veins andportal vein are patent. Peritoneum: No evidence of free intraperitoneal air, free fluid, ororganized collections. Lymph nodes: No lymphadenopathy detected. Stomach/duodenum: Small hiatal hernia. Body wall: Small area of nonspecific focal skin thickening just left ofmidline in the lower abdomen and probable sebaceous cyst anteriorly in theright lower quadrant. CT PELVIS: Bladder: Bladder wall thickening is probably largely related tounderdistention. Reproductive: Uterus is enlarged and contains multiple hypodense massesfrom uterine fibroids as seen on prior ultrasound exam from 2015. Noadnexal abnormality. Bowel: Excessive stool volume throughout the colon. Also fecalizedappearance of the terminal ileum likely from hypomotility. No bowelobstruction. Appendix is normal. No inflammatory changes. Peritoneum: No free fluid or organized collections. Lymph nodes: No iliac chain or inguinal lymphadenopathy. 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 No compression deformities. Osteopenia. Severe facetarthropathy at the lower two lumbar levels. Grade 1 anterolisthesis of L3on 4 secondary to severe facet arthropathy. Mild degenerative changes inthe hips greater on the right. No destructive bone lesion. IMPRESSION: Excessive stool volume and fecalized material of distal ileum fromhypomotility. Multi fibroid uterus again noted. Numerous hepatic cysts. TOTAL CTDIvol: 5.50 mGy POS - [id number] Edited by: Marie Mclean on 01/30/2018 3:12 PM us Karen Kuo PA-C [email or web address] CT ABD/PELVIS Final Result documented in this encounter Visit Diagnoses Diagnosis Other constipation Bloating Flatulence, eructation, and gas pain Other constipation Bloating Flatulence, eructation, and gas pain documented in this encounter Care Teams Engineering Technician Relationship Specialty Start Date End Date Theresa Shah MD [email or web address] PCP - General Internal Medicine 08/22/1711/28/18 Carlitos Castro MD [address] [place] [address] PCP - General Internal Medicine 11/29/18 10/21/22 Abigail Jason MD [address] [place] [id number] [email or web address] PCP - General Family Medicine 10/22/2204/11 Lexi Fisher MD [address] [place] [id number] [email or web address] PCP - General Family Medicine 04/12/24 Checo Mario MD [address] [place] [address], [address] [place] [address] Neurology 11/29/18 Marc Mario MD [address] [place] [phone] Psychiatry 11/29/18 Francois Salazar MD [email or web address] Primary Oncologist Neurology 01/03/19 Randi Rich Psy.D. [address] [place] [address] [address] [place] [address] Psychologist 11/30/18 documented as of this encounter Additional Source Comments The information contained in this document represents components of the legal health record. It is not the complete legal health record.[facility]
== END 2025-10-04 10:45 | disposition home or self-care (01) ==
LOC: HO.XRAY 10:44
PROVIDERS: PCP Family Medicine; Referring Provider Family Medicine; Visit Provider Physician Assistant
DX: M41.26 Other idiopathic scoliosis, lumbar region (principal); M50.90 Cervical disc disorder, unspecified, unspecified cervical region; M48.02 Spinal stenosis, cervical region
CPT/HCPCS: 72082; 72110

== ENCOUNTER → 2025-10-04 12:27 | Outpatient (BNV) | payer OTHER, SELFPAY | PROVIDERS: PCP Family Medicine; Referring Provider Family Medicine; Visit Provider Radiology Diagnostic Radiology | DX: M41.80 Other forms of scoliosis, site unspecified (principal); M41.20 Other idiopathic scoliosis, site unspecified | CPT/HCPCS: 72082; 72110 ==